=== PATIENT | male | born 1975 | race Caucasian/White ===

== ENCOUNTER 2019-03-18 16:15 | Emergency (ER) | payer MEDICAID, SELFPAY ==
[2019-03-18 17:11] LABS: Basophils # 0.1 10^3/uL (0.0-0.1); Basophils % 0.3 %; Eosinophils % 0.2 %; Hemoglobin 14.6 g/dL (11.7-16.6); Lymphocytes # 1.2 10^3/uL (0.8-4.8); Lymphocytes % 6.9 %; Mean Corpuscular HGB Conc 33.2 g/dL (30.0-36.0); Mean Corpuscular Hemoglobin 31.9 pg (28.0-34.0); Mean Corpuscular Volume 96.3 fL (80-94); Mean Platelet Volume 9.5 fL (7.4-10.4); Monocytes % 5.7 %; Neutrophils # 15.1 10^3/uL (1.8-7.7); Neutrophils % 86.2 %; Nucleated Red Blood Cells % 0 %; Platelet Count 305 10^3/cmm (130-400); Red Blood Count 4.57 10^6/uL (4.1-5.3); Red Cell Distribution Width 14.1 % (12.1-15.1); White Blood Count 17.5 10^3/uL (4.0-10.0)
[2019-03-18 17:35] LABS: Alanine Aminotransferase 17 U/L (0-41); Albumin Level 4.4 g/dL (3.5-5.2); Alkaline Phosphatase 90 IU/L (40-130); Anion Gap 22.4 (5-19); Aspartate Amino Transferase 23 U/L (0-40); Blood Urea Nitrogen 19 mg/dL (6-20); Calcium 10.8 mg/Dl (8.6-10.0); Carbon Dioxide 24 mmol/L (22-29); Chloride 92 mmol/L (98-107); Globulin 3.6 g/dL (1.3-4.6); Glomerular Filtration Rate 72.7 mL/min (90-130); Glucose 116 mg/dL (74-109); Lipase 7 U/L (13-60); Potassium 4.4 mmol/L (3.5-5.1); Sodium 134 mmol/L (136-145); Total Bilirubin 0.4 mg/dL (0.15-1.2)
[2019-03-18 18:12] VITALS: BP 189/112; PULSE 119; RESP 18; TEMP 36.6; O2SAT 97; BMI 16.5
[2019-03-18 19:09] LABS: Lactate (Lactic Acid level) 4.1 mmol/L (0.5-2.2)
--- NOTE | 2019-03-18 20:05 | PC.NURSE ---
pt placed in gown and given warm blanket. no needs at this time.
--- NOTE | 2019-03-18 20:12 | CTR_ITS ---
PROCEDURE INFORMATION: Exam: CT Abdomen And Pelvis With Contrast Exam date and time: 03/18/2019 8:26 PM Age: 43 years old Clinical indication: Nausea and vomiting; Abdominal pain; Prior surgery; Surgery type: Feeding tube placed and removed; Additional info: Abd pain TECHNIQUE: Imaging protocol: Computed tomography of the abdomen and pelvis with intravenous contrast. Total DLP: 529.24 mGy-cm Radiation optimization: All CT scans at this facility use at least one of these dose optimization techniques: automated exposure control; mA and/or kV adjustment per patient size (includes targeted exams where dose is matched to clinical indication); or iterative reconstruction. Contrast material: OMNI 300; Contrast volume: 75 ml; Contrast route: IV; COMPARISON: CT abdomen pelvis wo con [id number] 11/17/2018 4:16 AM FINDINGS: Lungs: Bibasilar subsegmental atelectasis is noted. Heart: Prominent left ventricle myocardial thickening is noted. A small pericardial effusion is noted. Liver: Normal. No mass. Gallbladder and bile ducts: Multiple gallstones are present in the gallbladder. Trace pericholecystic fluid is noted. No biliary ductal dilatation is seen. Pancreas: Normal. No ductal dilation. Spleen: Normal. No splenomegaly. Adrenals: Normal. No mass. Kidneys and ureters: A 19 mm left renal cyst is noted. The kidneys appear normal. No hydronephrosis. Stomach and bowel: A 2 cm linear metallic density object is seen in the stomach. Appendix: The appendix is normal. Intraperitoneal space: Unremarkable. No free air. No significant fluid collection. Vasculature: Mild atherosclerotic changes are seen in the abdominal aorta. No aneurysm. Lymph nodes: Unremarkable. No enlarged lymph nodes. Bladder: Unremarkable as visualized. Reproductive: Unremarkable as visualized. Bones/joints: Unremarkable. No acute fracture. Soft tissues: Unremarkable. CT/CT abdomen pelvis w con* [id number] IMPRESSION: 1. Cholelithiasis and possible cholecystitis, correlate clinically. Gallbladder ultrasound may allow further assessment. 2. Metallic density objects in the stomach are likely related to prior gastrostomy tube placement. 3. Possible hypertrophic cardiomyopathy. Radiation Dose CTDIVOL = (mGy): DLP = 529.24 (mGy-cm)
--- NOTE | 2019-03-18 20:17 | ED_ITS ---
Entered by Felicia Boucher, acting as scribe for Gricelda Leon MD Mar 18, 2019 16:15 HPI - Abdominal Pain General: Chief Complaint: Abdominal Pain Stated Complaint: abd pains, puking Time Seen by Provider: 03/18/19 20:11 Source: patient and family Mode of arrival: ambulatory History of Present Illness: HPI narrative: 43 y/o male presents to the ED with complaint of abd pain and vomiting. Family states he was seen at the clinic earlier today and was advised to come here by Dr. Lundberg, to be evaluated for possible pancreatitis. Pt has hx of malnutrition. Pt states he has hx stroke and has had to have feeding tubes. Dr. Zaldivar has placed and removed them, in the past. Pt states he has known gallstones at this time. MD elicited complaint: abdominal pain Pertinent past history: other (gallstones, pancreatitis) Onset (ago): day(s) Pain Consistency: constant Location: Epigastric Severity: moderate Migration to: no migration Relieving factors: nothing Associated Symptoms: Reports nausea, poor appetite and vomiting; Denies chills and fever(s) Review of Systems Const: Denies: fever or chills Eyes: Denies: change in vision ENMT: Denies: throat pain or mouth pain Card: Denies: chest pain Resp: Denies: shortness of breath GI: Reports: abdominal pain, nausea and vomiting Musc: Denies: back pain or joint pain Skin/Breast: Denies: rash Neuro: Denies: headache or behavioral changes Psych: Denies: depression Endo: Denies: excessive urination Terell/Lymph: Denies: easy bruising All/Imm: Denies: hives PFSH ED PFSH: Statuses (acute, chronic, etc) shown below reflect problem list status as previously entered and may not be historically accurate Medical History Stroke (cerebrum) (Acute) Social History Smoking and tobacco status: current every day smoker Physical Exam Const: COMMON NORMALS: no apparent distress, oriented x3 and healthy appearing HENMT: COMMON NORMALS: normocephalic and external nose normal HEAD & SCALP: normocephalic NOSE: external nose normal Eye: COMMON NORMALS: PERRL PUPIL: Yes PERRL Neck/C-Spine: COMMON NORMALS: full ROM and no lymphadenopathy Chest: COMMONS NORMALS: inspection of chest normal Resp: COMMON NORMALS: normal respiratory effort, no use of accessory muscles and clear to auscultation bilaterally AUSCULTATION: clear to auscultation bilaterally Cardio: COMMON NORMALS: regular rate and regular rhythm RATE: regular rate RHYTHM: regular rhythm GI: OTHER: diffuse tenderness worse in epigastric region Back/Pelvis: THORACIC SPINE/UPPER BACK: Yes normal to inspection Extremity: COMMON NORMALS: normal to inspection, full ROM and normal capillary refill Neuro: COMMON NORMALS: oriented x3 Psych: COMMON NORMALS: mental status grossly normal and cooperative Skin: COMMON NORMALS: no rashes or lesions noted GENERAL SKIN EXAM: no rashes or lesions noted Procedures Intubation Mg Given: 20 Mg Given: 200 Course Reevaluation(s): Reevaluation #1: Patient's initial lactate and white count were elevated which I believe was due to dehydration from vomiting. Patient first arrived he was afebrile and he felt much improved here after fluids and Zofran. Ultrasound and CT showed no signs of acute findings in his abdomen. After IV fluids repeat lactate had increased slightly. Patient has developed a fever now as well and I am concerned for sepsis. Will start on IV antibiotics and transfer to [facility] as we have no bed availability here. Time: 01:27 Vital Signs: Vital signs: Vital Signs Temperature 100.8 F H 03/19/19 02:30 Pulse Rate 131 H 03/19/19 02:50 Respiratory Rate 19 H 03/19/19 02:50 Blood Pressure 149/101 03/19/19 02:50 Pulse Oximetry 96 03/19/19 02:50 MDM - Abdominal Pain MDM Narrative: Medical decision making narrative: Patient presents here with vomiting along with dehydration and did have a fever here. Patient also has an elevated white count and lactate. This is concerning for sepsis. Patient has no signs of shock. Source of infection is not found with patient started on vancomycin and Zosyn. Spoke to physician at [facility] and will transfer there as we have no bed availability here. Medical Records: Attestation: I reviewed the patient's medical records. Lab Data: Labs: Lab Results 03/18/19 03/18/19 03/18/19 Range/Units 00:30 00:30 16:54 WBC 19.9 H 17.5 H (4.0-10.0) 10^3/ uL RBC 4.24 4.57 (4.1-5.3) 10^6/u L Hgb 13.1 14.6 (11.7-16.6) g/dL Hct 40.9 L 44.0 (42.0-52.0) % MCV 96.5 H 96.3 H (80-94) fL MCH 30.9 31.9 (28.0-34.0) pg MCHC 32.0 33.2 (30.0-36.0) g/dL RDW 14.1 14.1 (12.1-15.1) % Plt Count 296 305 (130-400) 10^3/c mm MPV 10.3 9.5 (7.4-10.4) fL Neut % (Auto) 85.0 86.2 % Lymph % (Auto) 8.3 6.9 % Rich % (Auto) 5.9 5.7 % Eos % (Auto) 0.2 0.2 % Baso % (Auto) 0.2 0.3 % Neut # (Auto) 16.9 H 15.1 H (1.8-7.7) 10^3/u L Lymph # (Auto) 1.7 1.2 (0.8-4.8) 10^3/u L Rich # (Auto) 1.2 H 1.0 H (0.2-0.9) 10^3/u L Eos # (Auto) 0.0 0.0 (0.0-0.8) 10^3/u L Baso # (Auto) 0.0 0.1 (0.0-0.1) 10^3/u L Nucleated RBC % (a uto) 0 0 % Nucleated RBCs # 0.0 0.0 /100WBC Specimen Type Sample Site ABG pH (7.35-7.45) ABG pCO2 (35-45) mmHg ABG pO2 (80.0-100.0) mmH g ABG HCO3 (22-26) mmol/L ABG Base Excess (-2.0-2.0) mmol/ L Jaya Test Hematocrit (42-52) % O2 Liters/Min % Ripshear Operator ID Sodium (136-145) mmol/L Potassium (3.5-5.1) mmol/L Chloride (98-107) mmol/L Carbon Dioxide (22-29) mmol/L Anion Gap (5-19) BUN (6-20) mg/dL Creatinine (0.7-1.2) mg/dL GFR Calculation (90-130) mL/min Glucose (74-109) mg/dL POC Glucose (70-110) mg/dL Lactate 4.6 H* (0.5-2.2) mmol/L Calcium (8.6-10.0) mg/Dl Total Bilirubin (0.15-1.2) mg/dL AST (0-40) U/L ALT (0-41) U/L Alkaline Phosphata se (40-130) IU/L Total Protein (6.6-8.7) g/dL Albumin (3.5-5.2) g/dL Globulin (1.3-4.6) g/dL Lipase (13-60) U/L 03/18/19 03/18/19 03/18/19 Range/Units 16:54 18:22 18:33 WBC (4.0-10.0) 10^3/ uL RBC (4.1-5.3) 10^6/u L Hgb (11.7-16.6) g/dL Hct (42.0-52.0) % MCV (80-94) fL MCH (28.0-34.0) pg MCHC (30.0-36.0) g/dL RDW (12.1-15.1) % Plt Count (130-400) 10^3/c mm MPV (7.4-10.4) fL Neut % (Auto) % Lymph % (Auto) % Rich % (Auto) % Eos % (Auto) % Baso % (Auto) % Neut # (Auto) (1.8-7.7) 10^3/u L Lymph # (Auto) (0.8-4.8) 10^3/u L Rich # (Auto) (0.2-0.9) 10^3/u L Eos # (Auto) (0.0-0.8) 10^3/u L Baso # (Auto) (0.0-0.1) 10^3/u L Nucleated RBC % (a uto) % Nucleated RBCs # /100WBC Specimen Type Sample Site ABG pH (7.35-7.45) ABG pCO2 (35-45) mmHg ABG pO2 (80.0-100.0) mmH g ABG HCO3 (22-26) mmol/L ABG Base Excess (-2.0-2.0) mmol/ L Jaya Test Hematocrit (42-52) % O2 Liters/Min % Ripshear Operator ID Sodium 134 L (136-145) mmol/L Potassium 4.4 (3.5-5.1) mmol/L Chloride 92 L (98-107) mmol/L Carbon Dioxide 24 (22-29) mmol/L Anion Gap 22.4 H (5-19) BUN 19 (6-20) mg/dL Creatinine 1.1 (0.7-1.2) mg/dL GFR Calculation 72.7 L (90-130) mL/min Glucose 116 H (74-109) mg/dL POC Glucose 99 (70-110) mg/dL Lactate 4.1 H* (0.5-2.2) mmol/L Calcium 10.8 H (8.6-10.0) mg/Dl Total Bilirubin 0.4 (0.15-1.2) mg/dL AST 23 (0-40) U/L ALT 17 (0-41) U/L Alkaline Phosphata se 90 (40-130) IU/L Total Protein 8.0 (6.6-8.7) g/dL Albumin 4.4 (3.5-5.2) g/dL Globulin 3.6 (1.3-4.6) g/dL Lipase 7 L (13-60) U/L 03/19/19 03/19/19 Range/Units 01:13 02:04 WBC (4.0-10.0) 10^3/ uL RBC (4.1-5.3) 10^6/u L Hgb (11.7-16.6) g/dL Hct (42.0-52.0) % MCV (80-94) fL MCH (28.0-34.0) pg MCHC (30.0-36.0) g/dL RDW (12.1-15.1) % Plt Count (130-400) 10^3/c mm MPV (7.4-10.4) fL Neut % (Auto) % Lymph % (Auto) % Rich % (Auto) % Eos % (Auto) % Baso % (Auto) % Neut # (Auto) (1.8-7.7) 10^3/u L Lymph # (Auto) (0.8-4.8) 10^3/u L Rich # (Auto) (0.2-0.9) 10^3/u L Eos # (Auto) (0.0-0.8) 10^3/u L Baso # (Auto) (0.0-0.1) 10^3/u L Nucleated RBC % (a uto) % Nucleated RBCs # /100WBC Specimen Type Arterial Sample Site Radial, right ABG pH 7.39 (7.35-7.45) ABG pCO2 36.6 (35-45) mmHg ABG pO2 78.3 L (80.0-100.0) mmH g ABG HCO3 22.0 (22-26) mmol/L ABG Base Excess -2.5 L (-2.0-2.0) mmol/ L Jaya Test Pos Hematocrit 40.9 L (42-52) % O2 Liters/Min 2.0 % Ripshear Operator ID harkr Sodium (136-145) mmol/L Potassium (3.5-5.1) mmol/L Chloride (98-107) mmol/L Carbon Dioxide (22-29) mmol/L Anion Gap (5-19) BUN (6-20) mg/dL Creatinine (0.7-1.2) mg/dL GFR Calculation (90-130) mL/min Glucose (74-109) mg/dL POC Glucose 83 (70-110) mg/dL Lactate (0.5-2.2) mmol/L Calcium (8.6-10.0) mg/Dl Total Bilirubin (0.15-1.2) mg/dL AST (0-40) U/L ALT (0-41) U/L Alkaline Phosphata se (40-130) IU/L Total Protein (6.6-8.7) g/dL Albumin (3.5-5.2) g/dL Globulin (1.3-4.6) g/dL Lipase (13-60) U/L Imaging Data ^: CXR: Attestation: I personally reviewed and interpreted this imaging study as f lizs: My impression: no acute abnormality EKG Data ^: EKG 1: Attestation: I personally reviewed and interpreted this EKG as follows: EKG interpretation date: 03/19/19 EKG interpretation time: 01:39 Interpretation: sinus tach hr [address] and t wave abnormality qrs 78 qtc 342 Critical Care Time Critical Care Time: Critical Care Time: Yes Total Critical Care Time: 35 Attestation: Patient given multiple fluid boluses and monitored cardiac output with initial lactate elevated and repeat lactate elevated. Patient did have a fever at first but did develop fever concerning of sepsis and started on IV ant ibiotics. Discharge Plan Discharge Patient Disposition: Xfer Other Clinical Impression: Abdominal pain in male Sepsis Qualifiers: Sepsis type: sepsis due to unspecified organism Sepsis acute organ dysfunction status: without acute organ dysfunction Qualified Code(s): A41.9 - Sepsis, unspecified organism Condition: Stable Discharge Orders: Transfer Out of Facility (Order); Ordered 03/19/19 Ordered By: Gricelda Leon Referrals: Jennifer Lundberg MD [Primary Care Provider] - Patient Instructions: Cholecystitis (ED), Abdominal Pain (ED) Coding Level of Care Code ED Spring Clipper for Chg Fwd Exam Problem Focused The documentation recorded by the Sander morel Ashley, accurately reflects the service I personally performed and the decisions made by Carolyn truong Korby, MD Mar 18, 2019 16:15
[2019-03-18 21:11] VITALS: RESP 18
[2019-03-18] MEDS: morphine 4 mg/mL SDV 1 mL IVP (21:11)
[2019-03-18] MEDS: ondansetron 2 mg/ML SDV 2 mL 4 MG IVP (21:11)
[2019-03-18] MEDS: sodium chloride 0.9% 1,000 ML 999 ML IV (21:12)
[2019-03-18 21:20] VITALS: PULSE 118; RESP 16; O2SAT 96
[2019-03-18] MEDS: iohexol 300 mg/mL 100 mL Btl 95 ML IV (21:31)
[2019-03-18 22:11] VITALS: RESP 20
[2019-03-18] MEDS: HYDROmorphone 1 mg/mL INJ 1 mL IVP (22:11)
--- NOTE | 2019-03-18 22:14 | US_ITS ---
WS: [id number] Gallbladder ultrasound, 03/18/2019 Clinical Data: abd pain Comparison: None. Findings: The gallbladder shows stones and enlargement. The wall measures 2.3 mm with no pericholecystic fluid. The common bile duct is 7.7 mm and there are no intrahepatic ductal abnormalities. Liver shows no cysts, masses or dilated intrahepatic ducts. The pancreas is not obscured by overlying bowel gas and no cyst, pseudocyst, or evidence of pancreati tis is noted. Right kidney measures 9.5 cm and no cyst, masses or hydronephrosis can be seen. The aorta and inferior vena cava show no vascular abnormalities. US/US gall bladder [id number] Impression: Cholelithiasis with enlarged gallbladder.
[2019-03-19] VITALS (12 sets, daily range): BP systolic 146–166; BP diastolic 101–112; PULSE 130–136; RESP 18–30; TEMP 38.2–38.4; O2SAT 94–97
[2019-03-19 00:19] LABS: Glucose Point of Care 99 mg/dL (70-110)
[2019-03-19 01:17] LABS: Lactate (Lactic Acid level) 4.6 mmol/L (0.5-2.2)
--- NOTE | 2019-03-19 01:22 | XR_ITS ---
WS: [id number] Portable AP upright chest, 03/19/2019 Clinical Data: cough Comparison: Portable chest, 11/17/2018. Findings: No nodules, masses or effusions are seen. The heart is slightly increased. The pulmonary va scularity is slightly increased. No pneumonia or pneumothorax is seen. Monitor leads on the chest caren enrique XR/XR chest 1V portable [id number] Impression: Normal cardiomegaly and pulmonary vascular congestion.
[2019-03-19 01:26] LABS: Glucose Point of Care 83 mg/dL (70-110)
--- NOTE | 2019-03-19 01:41 | PC.NURSE ---
performed an ekg by an professor of industrial technology and shown to ER doctor. Done at 0135
[2019-03-19 01:47] LABS: Basophils % 0.2 %; Eosinophils % 0.2 %; Hematocrit 40.9 % (42.0-52.0); Hemoglobin 13.1 g/dL (11.7-16.6); Lymphocytes # 1.7 10^3/uL (0.8-4.8); Lymphocytes % 8.3 %; Mean Corpuscular Hemoglobin 30.9 pg (28.0-34.0); Mean Corpuscular Volume 96.5 fL (80-94); Mean Platelet Volume 10.3 fL (7.4-10.4); Monocytes # 1.2 10^3/uL (0.2-0.9); Monocytes % 5.9 %; Neutrophils # 16.9 10^3/uL (1.8-7.7); Nucleated Red Blood Cells % 0 %; Platelet Count 296 10^3/cmm (130-400); Red Blood Count 4.24 10^6/uL (4.1-5.3); Red Cell Distribution Width 14.1 % (12.1-15.1); White Blood Count 19.9 10^3/uL (4.0-10.0)
[2019-03-19] MEDS: sodium chloride 0.9% 1,000 ML 999 ML IV (02:05)
[2019-03-19 02:15] LABS: ABG PCO2 36.6 mmHg (35-45); ABG PH Result 7.39 (7.35-7.45); Arterial Blood Gas Hematocrit 40.9 % (42-52); Base Excess ABG -2.5 mmol/L (-2.0-2.0); Blood Gas Allen Test Pos; Blood Gas Sample Site Radial, right; Blood Gas Sample Type Arterial; PO2 ABG 78.3 mmHg (80.0-100.0)
[2019-03-19] MEDS: LORazepam 2 mg/mL INJ 1 mL 1 MG IVP (02:29)
--- NOTE | 2019-03-19 02:41 | PC.NURSE ---
Informed nurse and doctor of temperature.
[2019-03-19] MEDS: piperacillin-tazobactam 4.5 GM in sodium chloride 0.9% (plus) 50 ML IV (02:47)
== END 2019-03-19 04:14 | disposition other institution (70) ==
PROVIDERS: Family Medicine; Physician Assistant; Emergency Provider Emergency Medicine; Family Provider Family Medicine; PCP Family Medicine
DX: A41.9 Sepsis, unspecified organism (principal); Z86.73 Personal history of transient ischemic attack (TIA), and cerebral infarction without residual deficits; F17.210 Nicotine dependence, cigarettes, uncomplicated
CPT/HCPCS: 36415; 36416; 36600; 71045; 74177; 76705; 80053; 82803; 82962; 83605; 83690; 85025; 87040; 96360; 96365; 96366; 96374; 96375; 99282; J0131; J1170; J2060; J2270; J2405; J2543; J3370; J7030; J7050; Q9967

== ENCOUNTER → 2019-04-01 14:31 | Outpatient (BNVA) | payer MEDICAID, SELFPAY | PROVIDERS: Family Provider Family Medicine; PCP Family Medicine; Visit Provider Family Medicine | DX: G89.18 Other acute postprocedural pain (principal); R10.9 Unspecified abdominal pain; J44.9 Chronic obstructive pulmonary disease, unspecified | CPT/HCPCS: 80053; 85025; 87804 ==

== ENCOUNTER → 2019-04-22 10:08 | Outpatient (BNVA) | payer MEDICAID, SELFPAY | PROVIDERS: Family Provider Family Medicine; PCP Family Medicine; Visit Provider Family Medicine | DX: R00.0 Tachycardia, unspecified (principal); K21.9 Gastro-esophageal reflux disease without esophagitis; E11.40 Type 2 diabetes mellitus with diabetic neuropathy, unspecified; E11.69 Type 2 diabetes mellitus with other specified complication; Z79.4 Long term (current) use of insulin; E87.5 Hyperkalemia; M79.604 Pain in right leg; E83.52 Hypercalcemia | CPT/HCPCS: 80053; 83036; 84443 ==

== ENCOUNTER → 2019-08-10 17:58 | Outpatient (BNVA) | payer MEDICAID, SELFPAY | PROVIDERS: Family Provider Family Medicine; PCP Family Medicine; Visit Provider Family Medicine | DX: G47.00 Insomnia, unspecified (principal); E08.43 Diabetes mellitus due to underlying condition with diabetic autonomic (poly)neuropathy; E11.69 Type 2 diabetes mellitus with other specified complication; Z79.4 Long term (current) use of insulin; M79.604 Pain in right leg | CPT/HCPCS: 80053; 80061; 83036 ==

== ENCOUNTER → 2019-10-06 12:38 | Outpatient (BNVA) | payer MEDICAID, SELFPAY | PROVIDERS: Family Provider Family Medicine; PCP Family Medicine; Visit Provider Family Medicine | DX: I10 Essential (primary) hypertension (principal); E11.69 Type 2 diabetes mellitus with other specified complication; Z79.4 Long term (current) use of insulin | CPT/HCPCS: 80053; 83036 ==

== ENCOUNTER → 2020-02-10 16:56 | Outpatient (BNVA) | payer MEDICAID, SELFPAY | PROVIDERS: Family Provider Family Medicine; PCP Family Medicine; Visit Provider Family Medicine | DX: I10 Essential (primary) hypertension (principal); G47.00 Insomnia, unspecified; I63.9 Cerebral infarction, unspecified; R00.0 Tachycardia, unspecified; E87.5 Hyperkalemia; E08.43 Diabetes mellitus due to underlying condition with diabetic autonomic (poly)neuropathy; G47.01 Insomnia due to medical condition; N18.30 Chronic kidney disease, stage 3 unspecified; Z79.4 Long term (current) use of insulin | CPT/HCPCS: 80053; 83036 ==

== ENCOUNTER → 2020-09-06 18:00 | Outpatient (BNVA) | payer MEDICAID, SELFPAY | PROVIDERS: Family Provider Family Medicine; PCP Family Medicine; Visit Provider Family Medicine | DX: E08.43 Diabetes mellitus due to underlying condition with diabetic autonomic (poly)neuropathy (principal); G47.00 Insomnia, unspecified; M79.604 Pain in right leg; R00.0 Tachycardia, unspecified; I10 Essential (primary) hypertension; G47.01 Insomnia due to medical condition; I63.89 Other cerebral infarction; E87.5 Hyperkalemia; Z79.4 Long term (current) use of insulin | CPT/HCPCS: 80053; 80061; 83036 ==

== ENCOUNTER → 2020-12-06 18:00 | Outpatient (BNVA) | payer MEDICAID, SELFPAY | PROVIDERS: Family Provider Family Medicine; PCP Family Medicine; Visit Provider Family Medicine | DX: E11.69 Type 2 diabetes mellitus with other specified complication (principal); Z79.4 Long term (current) use of insulin; R00.0 Tachycardia, unspecified; I63.89 Other cerebral infarction; E87.5 Hyperkalemia; E87.1 Hypo-osmolality and hyponatremia; I12.9 Hypertensive chronic kidney disease with stage 1 through stage 4 chronic kidney disease, or unspecified chronic kidney disease; N18.30 Chronic kidney disease, stage 3 unspecified | CPT/HCPCS: 80048; 83036; 83735 ==

== ENCOUNTER → 2020-12-12 08:17 | Outpatient (BNVA) | payer MEDICAID, SELFPAY | PROVIDERS: Family Provider Family Medicine; PCP Family Medicine; Referring Provider Family Medicine; Visit Provider Internal Medicine | DX: E11.65 Type 2 diabetes mellitus with hyperglycemia (principal); E11.43 Type 2 diabetes mellitus with diabetic autonomic (poly)neuropathy; E11.69 Type 2 diabetes mellitus with other specified complication; E16.0 Drug-induced hypoglycemia without coma; R00.0 Tachycardia, unspecified; N18.2 Chronic kidney disease, stage 2 (mild); I63.89 Other cerebral infarction; T38.3X5A Adverse effect of insulin and oral hypoglycemic [antidiabetic] drugs, initial encounter; Z79.4 Long term (current) use of insulin | CPT/HCPCS: 99205 ==

== ENCOUNTER → 2021-03-01 13:45 | Outpatient (BNVA) | payer MEDICAID, SELFPAY | PROVIDERS: Family Provider Family Medicine; PCP Family Medicine; Visit Provider Family Medicine | DX: E11.65 Type 2 diabetes mellitus with hyperglycemia (principal); N18.9 Chronic kidney disease, unspecified | CPT/HCPCS: 80048; 83036 ==

== ENCOUNTER → 2021-03-15 09:07 | Outpatient (BNVA) | payer MEDICAID, SELFPAY | PROVIDERS: Family Provider Family Medicine; PCP Family Medicine; Visit Provider Internal Medicine | DX: E11.43 Type 2 diabetes mellitus with diabetic autonomic (poly)neuropathy (principal); E11.65 Type 2 diabetes mellitus with hyperglycemia; E11.22 Type 2 diabetes mellitus with diabetic chronic kidney disease; N18.2 Chronic kidney disease, stage 2 (mild); Z86.73 Personal history of transient ischemic attack (TIA), and cerebral infarction without residual deficits; E16.0 Drug-induced hypoglycemia without coma; T38.3X5A Adverse effect of insulin and oral hypoglycemic [antidiabetic] drugs, initial encounter; F17.210 Nicotine dependence, cigarettes, uncomplicated; Z79.4 Long term (current) use of insulin | CPT/HCPCS: 99214 ==

== ENCOUNTER 2021-03-15 10:12 | Outpatient (CLI) | payer MEDICAID, SELFPAY | END 2021-03-15 10:13 | disposition home or self-care (01) | LOC: LAB 10:14 | PROVIDERS: PCP Family Medicine; Visit Provider Internal Medicine | DX: E13.9 Other specified diabetes mellitus without complications (principal) | CPT/HCPCS: 83519; 83525; 86337 ==

== ENCOUNTER → 2021-03-29 10:52 | Outpatient (BNVA) | payer MEDICAID, SELFPAY | PROVIDERS: PCP Family Medicine; Visit Provider Internal Medicine | DX: E11.22 Type 2 diabetes mellitus with diabetic chronic kidney disease (principal); E11.43 Type 2 diabetes mellitus with diabetic autonomic (poly)neuropathy; E11.65 Type 2 diabetes mellitus with hyperglycemia; N18.2 Chronic kidney disease, stage 2 (mild); I63.89 Other cerebral infarction; E16.0 Drug-induced hypoglycemia without coma; T38.3X5A Adverse effect of insulin and oral hypoglycemic [antidiabetic] drugs, initial encounter; Z86.73 Personal history of transient ischemic attack (TIA), and cerebral infarction without residual deficits; Z79.4 Long term (current) use of insulin; F17.200 Nicotine dependence, unspecified, uncomplicated | CPT/HCPCS: 99214 ==

== ENCOUNTER → 2021-03-31 09:45 | Outpatient (BNVA) | payer MEDICAID, SELFPAY | PROVIDERS: PCP Family Medicine; Visit Provider Internal Medicine | DX: E16.0 Drug-induced hypoglycemia without coma (principal); E11.65 Type 2 diabetes mellitus with hyperglycemia; E87.5 Hyperkalemia; T38.3X5A Adverse effect of insulin and oral hypoglycemic [antidiabetic] drugs, initial encounter; Z79.4 Long term (current) use of insulin | CPT/HCPCS: 82947; 84681 ==

== ENCOUNTER → 2021-06-26 11:10 | Outpatient (BNVA) | payer MEDICAID, SELFPAY | PROVIDERS: PCP Family Medicine; Visit Provider Internal Medicine | DX: E11.43 Type 2 diabetes mellitus with diabetic autonomic (poly)neuropathy (principal); E11.65 Type 2 diabetes mellitus with hyperglycemia; E11.22 Type 2 diabetes mellitus with diabetic chronic kidney disease; N18.2 Chronic kidney disease, stage 2 (mild); E78.2 Mixed hyperlipidemia; E16.0 Drug-induced hypoglycemia without coma; T38.3X5A Adverse effect of insulin and oral hypoglycemic [antidiabetic] drugs, initial encounter; F17.210 Nicotine dependence, cigarettes, uncomplicated; Z79.4 Long term (current) use of insulin; Z86.73 Personal history of transient ischemic attack (TIA), and cerebral infarction without residual deficits | CPT/HCPCS: 99214 ==

== ENCOUNTER → 2021-10-11 10:12 | Outpatient (BNVA) | payer MEDICAID, SELFPAY | PROVIDERS: PCP Family Medicine; Visit Provider Family Medicine | DX: E78.2 Mixed hyperlipidemia (principal); E11.65 Type 2 diabetes mellitus with hyperglycemia; K04.7 Periapical abscess without sinus; K29.01 Acute gastritis with bleeding; N18.9 Chronic kidney disease, unspecified; I10 Essential (primary) hypertension; E87.5 Hyperkalemia | CPT/HCPCS: 80053; 80061; 83036 ==

== ENCOUNTER → 2022-05-28 10:33 | Outpatient (BNVA) | payer MEDICAID, SELFPAY | PROVIDERS: PCP Family Medicine; Visit Provider Family Medicine | DX: E11.69 Type 2 diabetes mellitus with other specified complication (principal); I63.9 Cerebral infarction, unspecified; M79.604 Pain in right leg; R00.0 Tachycardia, unspecified; I10 Essential (primary) hypertension; K29.70 Gastritis, unspecified, without bleeding; N18.9 Chronic kidney disease, unspecified; K29.01 Acute gastritis with bleeding; G47.01 Insomnia due to medical condition; Z79.4 Long term (current) use of insulin | CPT/HCPCS: 80048; 83036; 83735 ==

== ENCOUNTER 2022-06-23 21:50 | Inpatient (IN) | payer MEDICAID, SELFPAY ==
[2022-06-23 22:46] VITALS: BMI 16.2
[2022-06-23 23:03] LABS: Glucose Point of Care 300 mg/dL (70-110)
[2022-06-23 23:40] LABS: Alanine Aminotransferase 15 U/L (0-41); Albumin Level 4.3 g/dL (3.5-5.2); Alkaline Phosphatase 183 U/L (40-130); Anion Gap 29.3 (5-19); Aspartate Amino Transferase 20 U/L (0-40); Blood Urea Nitrogen 25 mg/dL (6-20); Calcium 10.3 mg/dL (8.5-10.5); Carbon Dioxide 15 mmol/L (22-29); Chloride 90 mmol/L (98-107); Globulin 4.6 g/dL (1.3-4.6); Glomerular Filtration Rate 40.6 mL/min (90-130); Glucose 283 mg/dL (65-115); Lipase 18 U/L (13-60); Osmolality Calculated 281 mOsm/kg (285-295); Potassium 6.3 mmol/L (3.5-5.1); Sodium 128 mmol/L (136-145); Total Bilirubin 1.3 mg/dL (0.15-1.2); Total Protein 8.9 g/dL (6.6-8.7)
[2022-06-23 23:41] LABS: Basophils # 0.1 10^3/uL (0.0-0.1); Basophils % 0.4 %; Hematocrit 50.6 % (42.0-52.0); Hemoglobin 15.5 g/dL (11.7-16.6); Lymphocytes # 1.3 10^3/uL (0.8-4.8); Lymphocytes % 6.3 %; Mean Corpuscular HGB Conc 30.6 g/dL (30.0-36.0); Mean Corpuscular Volume 91.3 fl (80-94); Mean Platelet Volume 10.3 fL (7.4-10.4); Monocytes # 1.2 10^3/uL (0.2-0.9); Monocytes % 5.7 %; Neutrophils # 18.56 10^3/uL (1.8-7.7); Neutrophils % 87.2 %; Nucleated Red Blood Cells % 0 %; Platelet Count 395 10^3/cmm (130-400); Red Blood Count 5.54 10^6/uL (4.1-5.3); Red Cell Distribution Width 13.3 % (12.1-15.1); White Blood Count 21.3 10^3/uL (4.0-10.0)
[2022-06-24] VITALS (81 sets, daily range): BP systolic 141–188; BP diastolic 95–115; PULSE 102–137; RESP 14–42; TEMP 37.1–37.2; O2SAT 87–100; BMI 16.2
--- NOTE | 2022-06-24 00:02 | CTR_ITS ---
PROCEDURE INFORMATION: Exam: CT Abdomen And Pelvis Without Contrast Exam date and time: 06/24/2022 1:17 AM Age: 46 years old Clinical indication: Vomiting; Abdominal pain; Generalized; Additional info: Vomiting abd pain TECHNIQUE: Imaging protocol: Computed tomography of the abdomen and pelvis without contrast. Radiation optimization: All CT scans at this facility use at least one of these dose optimization techniques: automated exposure control; mA and/or kV adjustment per patient size (includes targeted exams where dose is matched to clinical indication); or iterative reconstruction. REPORTING DATA: Count of CT and Cardiac NM exams in prior 12 months: This patient has received 0 known CTs and 0 known cardiac nuclear medicine studies in the 12 months prior to the current study. COMPARISON: CT abdomen pelvis w con* [id number] 03/18/2019 9:44 PM RADIATION DOSE METRICS: Total DLP (mGy-cm): 325.78 FINDINGS: Lungs: The visualized lung bases are clear. Diaphragm: Small hiatal hernia. Advanced lower esophageal wall thickening. Liver: Unremarkable. No discrete mass. Gallbladder and bile ducts: Absent gallbladder. Pancreas: Unremarkable with no suspicious mass. No ductal dilation. Spleen: The spleen is not enlarged. No suspicious mass is noted. Adrenal glands: Normal. No mass. Kidneys and ureters: No solid renal mass or hydronephrosis. Stomach and bowel: Fecal filled colon. No small bowel obstruction, abscess or free air. Appendix: No evidence of appendicitis. Intraperitoneal space: Unremarkable. No free air. No suspicious fluid collection. Vasculature: No AAA or acute vascular lesion identified. Lymph nodes: No enlarged lymph nodes. Urinary bladder: Large bladder. Reproductive: Large prostate. Bones/joints: Slight upper L3 compression fracture is new from 03/18/2019. Advise correlation. Soft tissues: No acute or suspicious finding noted. Other findings: Large amount of motion. CT/CT abdomen pelvis wo con [id number] IMPRESSION: 1. Small hiatal hernia with advanced esophagitis. 2. No small bowel obstruction, abscess or free air. 3. Fecal filled colon, large prostate, large bladder, and other chronic findings. 4. Slight upper L3 compression fracture is new from 03/18/2019. Advise correlation.
[2022-06-24 01:13] LABS: Magnesium 1.7 mg/dL (1.7-2.3)
[2022-06-24 01:18] LABS: ABG PCO2 29.4 mmHg (35-45); ABG PH Result 7.42 (7.35-7.45); Arterial Blood Gas Hematocrit 46.6 % (42-52); Base Excess ABG -3.8 mmol/L (-2.0-2.0); Blood Gas Sample Site Brachial, left; Blood Gas Sample Type Arterial; HCO3 ABG 19.2 mmol/L (22-26); PO2 ABG 89.6 mmHg (80.0-100.0)
[2022-06-24 01:20] LABS: Alcohol Level < 10 mg/dL (0-10)
[2022-06-24] MEDS: sodium chloride 0.9% 1,000 ML 999 ML IV ×3 (01:30→04:59)
[2022-06-24 02:30] LABS: Ketone (Acetest) Serum Negative (Negative)
[2022-06-24 04:02] LABS: Reflex Lactate Order REFLEX LACTIC ORDERD
[2022-06-24] MEDS: morphine 4 mg/mL SDV 1 mL IVP (04:28)
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
[2022-06-24] MEDS: ondansetron 2 mg/ML SDV 2 mL 4 MG IVP (05:00)
[2022-06-24] MEDS: levofloxacin-dextrose 5 % 500 MG/100 ML PREMIX 100 MG IV (05:04)
[2022-06-24 05:07] LABS: Amphetamines Screen Urine Negative (Negative); Barbiturates Screen Urine Negative (Negative); Benzodiazepines Screen Urine Negative (Negative); Cocaine Screen Urine Negative (Negative); Opiate Screen Urine Negative (Negative); PCP Screen Urine Negative (Negative); THC Screen Urine Negative (Negative)
[2022-06-24 05:21] LABS: Add Urine Microscopic? YES; Bilirubin Urine Neg (Negative); Blood Urine Neg (Negative); Glucose Urine UA 4+ (Normal); Ketones Urine 1+ (Negative); Leukocyte Esterase Urine Negative (Negative); Nitrate Urine Negative (Negative); Protein Urine 1+ (Negative); Urine Appearance Clear (CLEAR); Urine Color Yellow (Yellow); Urobilinogen Urine Norm (Negative); pH Urine 6.5 (5-7)
[2022-06-24] MEDS: acetaminophen 500 mg Tablet 1000 MG PO (05:59)
[2022-06-24 06:21] LABS: Glucose Point of Care 285 mg/dL (70-110)
[2022-06-24 06:34] LABS: Blood Urea Nitrogen 28 mg/dL (6-20); Calcium 8.9 mg/dL (8.5-10.5); Carbon Dioxide 21 mmol/L (22-29); Chloride 91 mmol/L (98-107); Glomerular Filtration Rate 43.4 mL/min (90-130); Glucose 289 mg/dL (65-115); Osmolality Calculated 280 mOsm/kg (285-295); Sodium 127 mmol/L (136-145)
[2022-06-24 06:37] LABS: Lactate (Lactic Acid level) 6.1 mmol/L (0.5-2.2)
[2022-06-24] MEDS: calcium gluconate 0.9% NaCL 1 GM/50 ML PREMIX IV (07:40)
--- NOTE | 2022-06-24 08:24 | PC.NURSE ---
report called to STEPHANI Blanco in ICU
--- NOTE | 2022-06-24 08:58 | ECG_ITS ---
[facility] Test Date: 2022-06-24 Pat Name: Faheem Willingham Department: Room: ICU10 Gender: Male [employer]ger: : 1975 Requested By: Del Stone Order Number: [id number] Reading MD: Manuel Hong M.D. Measurements Intervals [place] Rate: 118 P: 70 SC: 158 QRS: -39 QRSD: 92 T: 108 QT: 315 QTc: 442 Interpretive Statements SINUS TACHYCARDIA LEFT AXIS DEVIATION [QRS AXIS < -30] LEFT VENTRICULAR HYPERTROPHY AND ST-T CHANGE [VOLTAGE CRITERIA PLUS ST/T ABNORMALITY] Compared to ECG 11/17/2018 00:50:59 Left-axis deviation now present Atrial abnormality no longer present ST (T wave) deviation still present Electronically Signed On 06-24-2022 11:50:31 CDT by Manuel Hong M.D. [id number]
--- NOTE | 2022-06-24 10:42 | PC.NURSE ---
Frias catheter removed due to patient request. Patient states, my heart rate and blood pressure is never this high, and my potassium is never this high, its because of all these wires.
[2022-06-24] MEDS: magnesium sulfate premix 2 GM/50 ML PIGGYBACK IV (11:11)
[2022-06-24] MEDS: pantoprazole 40 mg SDV IVP ×2 (11:11→22:35)
[2022-06-24] MEDS: sucralfate 1 gm/10 mL Oral Liq UDC PO ×3 (11:11→22:37)
[2022-06-24] MEDS: sodium chloride 0.9% 1,000 ML 125 ML IV (11:12)
--- NOTE | 2022-06-24 11:21 | USR_ITS ---
PROCEDURE INFORMATION: Exam: US Abdomen, Limited; Right Upper Quadrant Exam date and time: 06/24/2022 12:39 PM Age: 46 years old Clinical indication: Abnormal findings; Abnormal lab test; Elevated liver enzymes; Prior surgery; Surgery date: 6+ months; Surgery type: Cholecystectomy; Additional info: Hepatobiliary, cholestasis on labs with elevated t. Bili and alk phos TECHNIQUE: Imaging protocol: Real time ultrasound of the abdomen with image documentation. Limited exam focused on the right upper quadrant. COMPARISON: US gall bladder [id number] 03/18/2019 11:30 PM FINDINGS: Pleural spaces: Right pleural effusion. Liver: Unremarkable. Gallbladder: Surgically absent. Biliary ducts: Normal. No stones. Pancreas: Unremarkable as visualized. Right kidney: No mass. No definite stones. No hydronephrosis. US/US abdomen limited [id number] IMPRESSION: Right pleural effusion.
--- NOTE | 2022-06-24 11:40 | P.HP_ITS ---
Providers/Chief Complaint Admitting Physician: Aliyah Lance MD Primary Care Provider: Jennifer Lundberg MD Chief Complaint: ABD PAIN History of Present Illness 46-year-old gentleman in ER for evaluation after vomiting, upper abdominal/lower chest rising burning pain, vomiting, initially with behavioral concerns raising his voice, making threatening stances, but eventually settled down. Reported attributes his symptoms to initially eating something bad from the fridge, hot dog. Has had some diarrhea. He is extremely hard of hearing, and it seems that at least in part behavioral issues may have stemmed due to lack of hearing/understanding. His right hearing aid is not working presumably due to depleted battery and battery is low in the left. Apart from burning discomfort rising up in his chest he denies other health complaints recently. Denies fever. Denies chest pain elsewhere, no trouble breathing or cough, no abdominal pain. Has history of BPH and he is complaining of Frias catheter which was placed in ER bothering him, making him feel like he has to urinate at all times, eventually request for the Frias catheter to be removed. In ER he has quite significant sinus tachycardia up to 130s with leukocytosis of 21,000, most neutrophilic 18.56. ABG 7.42/29.4/59.6/19.2. Chemistry panel sodium 127, potassium 6.3 initially, subsequently 6, chloride 91, bicarb 21, initially 15, gap 21, initially 29.3, creatinine 1.8, glucose initially up to 300, and reports has been elevated at home. Lactic acid noted as high as 9. BUN 28, creatinine 1.7, T. bili 1.3, AST and ALT normal, alk phos 183. UA with 1+ ketones, 4+ glucose. Unremarkable urine drug screen. CT abdomen pelvis 1. Small hiatal hernia with advanced esophagitis. 2. No small bowel obstruction, abscess or free air. 3. Fecal filled colon, large prostate, large bladder, and other chronic findings. 4. Slight upper L3 compression fracture is new from 03/18/2019. Advise correlation. In ER he received fluid resuscitation with NS boluses, received Zofran, dose of Levaquin, calcium gluconate. External hard of hearing, hears well and yield into his left ear, he turned up the volume on the hearing aid, although the battery is low. Otherwise can also read. Review of Systems Const: Denies: fever(s), chills, body aches or malaise ENMT: Denies: throat pain Card: Denies: chest pain, edema, pre-syncope or dyspnea on exertion Resp: Denies: dyspnea, productive cough, change in phlegm color or hemoptysis GI: Reports: heartburn; Denies: diarrhea, constipation, hematochezia or melena : Reports: urinary frequency; Denies: flank pain or hematuria Musc: Denies: back pain, joint swelling or joint redness Skin/Breast: Denies: rash or new lesions Neuro: Denies: headache(s), numbness in extremities, weakness in extremities, dizziness, confusion or seizure-like activity All/Imm: Denies: urticaria or tongue swelling Medications/Allergies Home Medications Medication Instructions Recorded Confirmed Last Taken Type cyanocobalamin (vitamin B-12) 100 100 mcg PO .COMPLEX 03/18/19 05/28/22 Unknown History mcg tablet pen needle, diabetic 29 gauge x #100 ea 06/22/20 05/28/22 Unknown Rx 1/2 (Ultra-Thin II Insulin Pen [place]) blood sugar diagnostic (OneTouch See Rx Instructions .Route 09/30/20 05/28/22 Unknown Rx Ultra Test strips) .COMPLEX #100 ea blood-glucose meter,continuous #1 ea 07/03/21 05/28/22 Unknown Rx (Dexcom G6 Materials Management Clerk) blood-glucose transmitter (Dexcom #1 ea 07/03/21 05/28/22 Unknown Rx G6 Transmitter device) Probiotic PO 09/13/21 05/28/22 Unknown History Novolog FlexPen U-100 Insulin 100 See Rx Instructions .Route 10/11/21 05/28/22 Unknown Rx unit/mL (3 mL) subcutaneous .COMPLEX #15 mL (insulin aspart U-100) pen needle, diabetic 32 gauge x #100 ea 01/10/22 05/28/22 Unknown Rx 5/16 (Comfort EZ Pen [place]) blood-glucose sensor (Dexcom G6 #6 ea 05/09/22 05/28/22 Unknown Rx Sensor device) amitriptyline 50 mg tablet 50 mg PO .at bedtime PRN insomnia 05/28/22 05/28/22 Unknown Rx 30 days #30 tabs atorvastatin 40 mg tablet 40 mg PO .at bedtime 30 days #30 05/28/22 05/28/22 Unknown Rx tabs clopidogrel 75 mg tablet 75 mg PO DAILY 30 days #30 tabs 05/28/22 05/28/22 Unknown Rx cyclobenzaprine 10 mg tablet 10 mg PO TID PRN muscle spasm 30 05/28/22 05/28/22 Unknown Rx days #60 tabs gabapentin 300 mg capsule 300 mg PO TID 30 days #90 caps 05/28/22 05/28/22 Unknown Rx insulin glargine 100 unit/mL (3 13 unit SUBCUT DAILY 05/28/22 Unknown History mL) subcutaneous pen (Lantus Solostar U-100 Insulin) metoprolol succinate 50 mg 50 mg PO DAILY 30 days #30 tabs 05/28/22 05/28/22 Unknown Rx tablet,extended release 24 hr pantoprazole 40 mg tablet,delayed 40 mg PO DAILY 30 days #30 tabs 05/28/22 05/28/22 Unknown Rx release Allergies Allergy/AdvReac Type Severity Reaction Status Date / Time amoxicillin AdvReac Intermediate ALGY-Hives Verified 05/28/22 07:02 PFSH Acute PFSH: Medical History Acute gastric ulcer CKD (chronic kidney disease) COPD (chronic obstructive pulmonary disease) Diabetes mellitus Diabetic autonomic neuropathy associated with secondary diabetes mellitus Dysphagia GERD (gastroesophageal reflux disease) Hyperkalemia History of this Hyperlipemia Hypertension Insomnia Neuropathy, diabetic Nodule of lower lobe of left lung Seizure Stroke (cerebrum) Surgical History History of cholecystectomy Hx of tonsillectomy S/P hernia repair S/P rhinoplasty Family History Father Diabetes Dementia Mother Cancer Social History (Updated 06/24/22 @ 11:45 by Del Stone MD) Smoking and tobacco status: current every day smoker cigarettes Quit status (tobacco): not considering quitting Second hand smoke exposure: Yes Smoking risk assessment/counseling performed?: Yes Alcohol intake: never Desire information about alcohol rehabilitation?: No Counseling given: No Desire information about substance/drug rehabilitation?: No Counseling given: No Household members: other Details: sister Vitals/I&O/Wt Last Vital Signs Pulse 120 H 06/24/22 08:30 Resp 18 06/24/22 08:30 BP 164/109 06/24/22 08:51 Pulse Ox 99 06/24/22 08:30 O2 Del Method Room Air 06/24/22 08:55 06/23/22 06/24/22 06/24/22 22:59 06:59 14:59 Intake Total 2099 / 2099 1000 / 1000 Balance 2099 / 2099 1000 / 1000 Weight last 48 hrs Weight 49.895 kg Weight 49.895 kg Physical Exam Narrative: External hard of hearing, hears well and yield into his left ear, he turned up the volume on the hearing aid, although the battery is low. Otherwise can also read. Const: COMMON NORMALS: patient oriented x3 and alert GENERAL APPEARANCE: cooperative ORIENTATION/CONSCIOUSNESS: Yes awake HENMT: COMMON NORMALS: oropharynx normal Neck/C-Spine: COMMON NORMALS: no JVD Resp: COMMON NORMALS: normal respiratory effort and clear to auscultation bilaterally AUSCULTATION: clear to auscultation bilaterally Cardio: COMMON NORMALS: no JVD, regular rhythm, S1 normal heart sound present, S2 normal heart sound present and No murmurs present (Cardio) RHYTHM: regular rhythm HEART SOUNDS: S1 normal heart sound present and S2 normal heart sound present GI: COMMON NORMALS: Normal to inspection, nondistended, normoactive bowel sounds present, Soft to palpation and non-tender PALPATION: Yes Soft to palpation Extremity: COMMON NORMALS: no joint enlargement and no pedal edema Neuro: COMMON NORMALS: patient oriented x3 and moves all extremities SENSORIUM/ORIENTATION: Yes alert Skin: COMMON NORMALS: no rashes or lesions noted GENERAL SKIN EXAM: no r ashes or lesions noted Urinary Catheter Management: Frias: Cath Placed During This Visit: yes Urinary Catheter Date of Insertion: 06/24/22 Urinary Catheter Time of Insertion: 08:10 Data 06/23/22 22:25 06/24/22 06:04 A&P Assessment and plan (1) Metabolic acidosis: Metabolic acidosis, severe lactic acidosis up to 9. He is not sure that he takes metformin, does not appear to be posted on his home medications. He does take insulin. I do not see history of liver cirrhosis. Sepsis presentation back in March 2019, at that time was transferred to [facility] due to lack of beds here. We will request records. Cholelithiasis on labs, but may be secondary to some dehydration, her bilirubin 1.3, alk phos 183. Does not really have abdominal pain on palpation. We will assess with limited ultrasound, although CT was unremarkable. Gentle IV hyd ration. Possibility of DKA, urine ketones positive. Sugars have been elevated recently. Start insulin drip. NS infusion. Replace magnesium. Monitor chemistries. Follow-up magnesium, and Phos. For now empiric antibiotics with ciprofloxacin and Flagyl (2) SIRS (systemic inflammatory response syndrome): SIRS with leukocytosis 21.3, tachycardia to 130s, currently 120s. Difficult to exclude sepsis and septic shock Esophagitis on CT. Otherwise some cholestasis noted as above. Blood culture requested, although I am told currently there is no blood culture vials. Discussing with lab, AO, 1 set was found here, another set will be a send out to [facility]. I am updated that the send out vials will not be available until tomorrow. Cipro and Flagyl empirically for now. PPI. Otherwise also enlarged prostate, he is having good amount of discomfort especially with Frias which had to be removed. Possibility of prostatitis, although urine otherwise not suggestive of UTI. Antibiotics as above. Will need follow-up with urology. Additionally as above similar presentation back in March 2019, also severe lactic acidosis up to 10, medical records have been requested from [facility]. Otherwise per outpatient notes has been having dental pain/abscess reported rece ntly for which she received antibiotics. Currently is not bothered by his teeth, although says they are not in good condition. A number of teeth are either missing, broken, tooth decay. No erythema or tenderness anywhere in the gums currently. No maxillary, mandibular or submandibular tenderness. With recent dental infections unfortunately concern for possibility of bacteremia at this time, possible other occult infection site. CT abdomen pelvis noncontrast study without obvious other focus, although again noncontrast. Noted new L3 compression fracture. Assess chest x-ray. (3) Acute kidney injury superimposed on CKD: Received fluid challenge. Follow-up kidney function, electrolytes, chemistry requested. No obstruction noted on CT. Suspect prerenal with severe acidosis, possibly ketoacidosis, degree of dehydration presentation, now possibly ATN. Monitor urine output. (4) Cholestasis: Hepatobiliary ultrasound. Gentle hydration. Empiric antibiotics for now. Suspect is more likely secondary to dehydration, although he is not fed cholelithiasis in the past but has since had cholecystectomy. Lipase is not elevated. (5) Esophagitis: PPI, sucralfate. As he is presenting with sepsis for now also empiric antibiotics as above. (6) Hyponatremia: Suspect hypovolemic, he has received fluid challenge. Follow-up sodium level. 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 Bicarb is low at 15. Dehydrated. Received volume resuscitation with improvement in numbers. Insulin drip with glucose monitoring in ICU. Follow-up chemistries. Electrolytes. (8) Prostate enlargement: BPH, possibly of prostatitis not excluded given symptoms, although UA really not suggestive of UTI. He requested removal of Frias as it was bothering him quite a bit. Monitor urine output. For now empiric antibiotics as above, although suspicion for infection is lower but cannot entirely exclude prostatitis, although also with think less likely should cause him sepsis presentation. Follow-up with urology. Flomax. Plan Acute encephalopathy: There appears to be may be mild degree of acute encephalopathy with mild delirium, possibly what was going on on admission, some of it at least in part likely secondary to severe hearing impairment. Batteries are being obtained for his hearing aids. However, he is still acting restless, minimally agitated, although has been somewhat redirectable, but still even with removal of Frias, getting up, pacing in the room. Concern expressed by the nurse that he is becoming more restless. Requesting 2 mg IM Haldol x1. Precedex. Difficulty with IV access: Very difficult time obtaining IV access, 1 of diabetes 20-gauge at risk of infiltrating. AC obtained, but unclear how long therefore will stay. PICC line requested to allow for blood draws as well. CKD, currently with DARWIN Gastric ulcer history: PPI COPD: Currently not in exacerbation GERD: PPI HLD HTN Diabetic neuropathy History of seizure History of stroke Nodule of right lower lung history Requested home medications to be confirmed, possibly with his sister so they can be reconciled and resumed. Attestations Medical Necessity Statement*: Admission of over 2 midnights anticipated for assessment management of severe metabolic acidosis, SIRS with possible sepsis, severe lactic acidosis, DKA, acute encephalopathy, additional problems as above. Coding Level of Care Code Critical Care >/= 30 minutes Critical care time (in minutes): 40 The high probability of a clinically significant, sudden or life threatening deterioration, as referenced in this documentation, required my full and direct attention, intervention and personal management. The critical care time shown is in addition to time spent performing any reported separately billable procedures and includes the following: [x] Data and vital sign review and interpretation [x ] Patient assessment, examination and intervention [x] Medication orders and management [x] Patient/Family updates as able [x] Care Coordination and Documentation. Diagnoses Metabolic acidosis E87.20 SIRS (systemic inflammatory response syndrome) R65.10 Acute kidney injury superimposed on CKD N17.9; N18.9 Cholestasis K83.1 Esophagitis K20.90 Hyponatremia E87.1 Ketonuria R82.4 Prostate enlargement N40.0
[2022-06-24] MEDS: insulin regular-human 250 UNIT in sodium chloride 0.9% 250 ML 5.39 UNIT IV (12:11)
[2022-06-24 12:24] LABS: Glucose Point of Care 238 mg/dL (70-110)
[2022-06-24 12:39] LABS: Thyroid Stimulating Hormone 1.53 uIU/mL (0.27-4.20)
[2022-06-24] MEDS: haloperidol inj 5 mg/mL INJ 1 mL 2 MG IM (12:49)
[2022-06-24] MEDS: nicotine 21 mg Patch 1 PATCH TRANSDERMA (12:52)
[2022-06-24] MEDS: enoxaparin 40 mg/0.4 mL Syringe SUBCUT (12:53)
--- NOTE | 2022-06-24 12:59 | PC.NURSE ---
Multiple IV attempts my several staff, Ultrasound IV attempted by 2 RN. Not successful. 20G IV places by STEPHANI Sandoval, infiltrated with maintenance fluid. Patient refuses cardiac monitoring. Patient agitated, verbalizes anger at staff for lab draws. Patient repeatedly states, you all are making me worse! you say you are trying to help me, but these wires and these Iv's are making me worse! I was not this sick before I came here! Male Family at bedside left patients room angry, stating, I have to leave this is ridiculous! Patient and sister at bedside extensively educated on patients condition and needed interventions, neither had questions at that time and verbalized understanding. Dr. Bright notified of patient and family agitation. Sister did bring hearing aid batteries and patient is able to communicate with staff better. Patient agrees to PICC line placement and signed consent with sister at bedside.
--- NOTE | 2022-06-24 13:02 | ECG_ITS ---
[facility] Test Date: 2022-06-24 Pat Name: Faheem Willingham Department: Room: ICU10 Gender: Male Rebar Bender: : 1975 Requested By: Del Stone Order Number: [id number] Reading MD: Manuel Hong M.D. Measurements Intervals [place] Rate: 120 P: 64 WI: 148 QRS: -20 QRSD: 90 T: 115 QT: 291 QTc: 411 Interpretive Statements SINUS TACHYCARDIA LEFT VENTRICULAR HYPERTROPHY AND ST-T CHANGE [VOLTAGE CRITERIA PLUS ST/T ABNORMALITY] POSSIBLE ANTERIOR MYOCARDIAL INFARCTION , OF INDETERMINATE AGE [30 ms Q WAVE IN V3/V4, OR R < 0.2 mV IN V4] Compared to ECG 06/24/2022 08:58:56 Myocardial infarct finding now present Left-axis deviation no longer present ST (T wave) deviation still present Electronically Signed On 06-24-2022 21:28:14 CDT by Manuel Hong M.D. [id number]
[2022-06-24 13:23] LABS: Glucose Point of Care 129 mg/dL (70-110)
[2022-06-24 13:54] LABS: D Dimer 3.19 ug/mIFEU (0-0.59)
[2022-06-24 14:23] LABS: Glucose Point of Care 105 mg/dL (70-110)
--- NOTE | 2022-06-24 14:56 | XRR_ITS ---
PROCEDURE INFORMATION: Exam: XR Chest Exam date and time: 06/24/2022 2:04 PM Age: 46 years old Clinical indication: Device placement; Picc; Additional info: Picc placement TECHNIQUE: Imaging protocol: Radiologic exam of the chest. Views: 1 view. COMPARISON: CR XR chest 1V portable [id number] 03/19/2019 1:41 AM FINDINGS: Tubes, catheters and devices: Right-sided PICC line in place with its tip overlying the cavoatrial junction. Lungs: Unremarkable. No consolidation. Pleural spaces: Unremarkable. No pleural effusion. No clinically significant pneumothorax. Heart/Mediastinum: Unremarkable. No cardiomegaly. Bones/joints: Unremarkable. XR/XR chest 1V portable [id number] IMPRESSION: Right-sided PICC line in place with its tip overlying the cavoatrial junction. No clinically significant pneumothorax.
--- NOTE | 2022-06-24 15:30 | PC.NURSE ---
Clarified verbal order from Dr. Bright to stop sodium chloride 0.9% and start dextrose 5%- sod chloride 0.45% at 125mls/hr.
[2022-06-24] MEDS: dextrose 5%-sod chloride 0.45% 1,000 ML 125 ML IV (15:32)
[2022-06-24] MEDS: metroNIDAZOLE IV 500 MG/100 ML PREMIX 100 MG IV ×2 (15:37→19:55)
[2022-06-24 15:42] LABS: Glucose Point of Care 90 mg/dL (70-110)
--- NOTE | 2022-06-24 15:49 | PC.NURSE ---
Consulted by house charge for picc placement. Consent obtained prior to arrival. I did discuss risk an benefits discussed. Risk included dvt an infection. RUE scanned with US an brachial vein was the best option. Vein was straight, 4mm, an free of visible clot. Pt draped in usual sterile fashion. Using real time US lidocaine injected, vein accessed, an picc floated into position. Xray ordered an waiting confirmation. EBL less then 5 ml. No bleeding no hematoma. Pt arm circumference is 29 cm at 10 cm above the ac fossa.
[2022-06-24 16:05] LABS: Troponin 5 2HR 53.16 ng/L (0-15)
[2022-06-24 16:20] LABS: Troponin(5th) Baseline 56 ng/L (0-15)
[2022-06-24] MEDS: dexmedetomidine 400 MCG in sodium chloride 0.9% (100 ml) 100 ML IV (16:20)
[2022-06-24 16:25] LABS: Troponin 5 2HR Delta -2.84 ABS# (0-10)
[2022-06-24 16:32] LABS: Glucose Point of Care 158 mg/dL (70-110)
--- NOTE | 2022-06-24 16:35 | ECG_ITS ---
[facility] Test Date: 2022-06-24 Pat Name: Faheem Willingham Department: Room: ICU10 Gender: Male Principal Process Engineer: JUSTEN: 1975 Requested By: Del Stone Order Number: [id number] Reading MD: Manuel Hong M.D. Measurements Intervals [place] Rate: 124 P: 54 NC: 140 QRS: -42 QRSD: 98 T: 116 QT: 285 QTc: 410 Interpretive Statements SINUS TACHYCARDIA LEFT AXIS DEVIATION [QRS AXIS < -30] LEFT VENTRICULAR HYPERTROPHY AND ST-T CHANGE [VOLTAGE CRITERIA PLUS ST/T ABNORMALITY] Compared to ECG 06/24/2022 13:37:49 Left-axis deviation now present Myocardial infarct finding no longer present ST (T wave) deviation still present Electronically Signed On 06-24-2022 21:27:38 CDT by Manuel Hong M.D. [id number]
--- NOTE | 2022-06-24 17:11 | PC.NURSE ---
Patient expresses frustration about obtaining EKG, nurses requests to remain in bed and IV drip lines. Patient states, I've never had heart problems before this, before all these wires and all these tubes attached to me. Patient denies pain at this time. Heart rate is 124, BP 148/89 and patient is resting in bed.
--- NOTE | 2022-06-24 17:33 | CTR_ITS ---
PROCEDURE INFORMATION: Exam: CT Head Without Contrast Exam date and time: 06/24/2022 6:05 PM Age: 46 years old Clinical indication: Other: Sepsis with dental complaints; Additional info: Sepsis, mild encephalopathy, dental complaints in preceding months TECHNIQUE: Imaging protocol: Computed tomography of the head without contrast. Axial, coronal and sagittal reformatted images were created and reviewed. Radiation optimization: All CT scans at this facility use at least one of these dose optimization techniques: automated exposure control; mA and/or kV adjustment per patient size (includes targeted exams where dose is matched to clinical indication); or iterative reconstruction. REPORTING DATA: Count of CT and Cardiac NM exams in prior 12 months: This patient has received 2 known CTs and 0 known cardiac nuclear medicine studies in the 12 months prior to the current study. COMPARISON: CT head wo con* [id number] 11/17/2018 2:43 PM RADIATION DOSE METRICS: Total DLP (mGy-cm): 1100.88 FINDINGS: Brain: Right greater than left temporoparietal encephalomalacia. Patchy areas of hypoattenuation in the periventricular and subcortical white matter, consistent with chronic small vessel ischemic disease. No CT evidence of acute intracranial hemorrhage or acute territorial infarction. No significant mass effect or midline shift. Basal cisterns patent. Cerebral ventricles: Prominence of the cortical sulci, cisterns and ventricular system, consistent with cerebral and cerebellar volume loss. Paranasal sinuses: Mild ethmoid mucosal thickening. Polypoid right frontal and left maxillary sinus mucosal thickening. No fluid levels. Mastoid air cells: Grossly unremarkable. Bones/joints: No acute osseous abnormality. Soft tissues: Grossly unremarkable. Vasculature: Calcific atherosclerotic disease in the cavernous internal carotid arteries, as well as the vertebro-basilar system. CT/CT head wo con* [id number] IMPRESS[address]: 1. No CT evidence of acute intracranial pathology. 2. Additional findings, as above.
--- NOTE | 2022-06-24 17:36 | CTR_ITS ---
PROCEDURE INFORMATION: Exam: CTA Chest With Contrast Exam date and time: 06/24/2022 6:08 PM Age: 46 years old Clinical indication: Pain; Other: Elevated d-dimer; Chest pressure; Additional info: Assess for pe TECHNIQUE: Imaging protocol: Computed tomographic angiography of the chest with contrast. 3D rendering (Not supervised by radiologist): MIP and/or 3D reconstructed images were created by the technologist. Radiation optimization: All CT scans at this facility use at least one of these dose optimization techniques: automated exposure control; mA and/or kV adjustment per patient size (includes targeted exams where dose is matched to clinical indication); or iterative reconstruction. Contrast material: OMNI 350; Contrast volume: 70 ml; Contrast route: INTRAVENOUS (IV); REPORTING DATA: Count of CT and Cardiac NM exams in prior 12 months: This patient has received 2 known CTs and 0 known cardiac nuclear medicine studies in the 12 months prior to the current study. COMPARISON: CR (CHEST, ) 06/24/2022 2:04 PM RADIATION DOSE METRICS: Total DLP (mGy-cm): 250.1 FINDINGS: Pulmonary arteries: Normal. No pulmonary emboli. Aorta: Unremarkable. No aortic aneurysm. No aortic dissection. Lungs: Emphysematous changes. Bilateral dependent atelectasis versus infiltrate. Pleural spaces: Small right pleural effusion. Heart: Coronary artery atherosclerotic calcifications. Mediastinal space: Diffuse esophageal wall thickening suggestive of esophagitis a or possibly an underlying mass. Lymph nodes: Unremarkable. No enlarged lymph nodes. Gallbladder and bile ducts: Cholecystectomy. Bones/joints: Several chronic thoracic spine compression fractures. Soft tissues: Unremarkable. Right-sided PICC line. Right adrenal 23 mm indeterminate nodule, dedicated nonemergent adrenal imaging could further characterize this. CT/CT angio chest PE protcl [id number] IMPRESSION: 1. Negative for pulmonary embolus. 2. Small right pleural effusion. 3. Diffuse esophageal wall thickening suggestive of esophagitis a or possibly an underlying mass. 4. Cholecystectomy. 5. Emphysematous changes. 6. Bilateral dependent atelectasis versus infiltrate. 7. Several chronic thoracic spine compression fractures. 8. Coronary artery atherosclerotic calcifications. 9. Right-sided PICC line. 10. Right adrenal 23 mm indeterminate nodule, dedicated nonemergent adrenal imaging could further characterize this.
[2022-06-24 17:47] LABS: Glucose Point of Care 193 mg/dL (70-110)
[2022-06-24] MEDS: iohexol 350 mg/mL 500 mL Btl (per mL) IV (18:08)
[2022-06-24] MEDS: acetaminophen 325 mg Tablet 650 MG PO (19:02)
[2022-06-24 19:06] LABS: Glucose Point of Care 163 mg/dL (70-110)
[2022-06-24 19:39] LABS: Troponin 5 6HR 57.91 ng/L (0-15)
[2022-06-24 19:40] LABS: Troponin 5 6HR Delta 1.91 ng/L (0-12)
--- NOTE | 2022-06-24 19:54 | USR_ITS ---
PROCEDURE INFORMATION: Exam: US Duplex Lower Extremity Veins, Bilateral Exam date and time: 06/24/2022 8:25 PM Age: 46 years old Clinical indication: Abnormal findings; Abnormal lab test; Elevated d-dimer; Additional info: Assess for dvt TECHNIQUE: Imaging protocol: Real-time duplex ultrasound of the bilateral extremities with 2-D turpin scale, color Doppler flow and spectral waveform analysis including responses to compression and other maneuvers (when performed) with image documentation. Complete exam focused on the lower extremity veins. COMPARISON: CT abdomen pelvis wo con [id number] 06/24/2022 1:17 AM FINDINGS: Right deep veins: Unremarkable. The common femoral, femoral, proximal profunda femoral and popliteal veins are patent without thrombus. Normal Doppler waveforms. Normal compressibility and/or augmentation response. Right superficial veins: Saphenofemoral junction is patent without thrombus. Left deep veins: Unremarkable. The common femoral, femoral, proximal profunda femoral and popliteal veins are patent without thrombus. Normal Doppler waveforms. Normal compressibility and/or augmentation response. Left superficial veins: Saphenofemoral junction is patent without thrombus. Soft tissues: Unremarkable. US/[place] [id number] IMPRESSION: No evidence of deep vein thrombosis.
[2022-06-24 20:06] LABS: Glucose Point of Care 157 mg/dL (70-110)
[2022-06-24 20:49] LABS: Blood Urea Nitrogen 19 mg/dL (6-20); Calcium 7.1 mg/dL (8.5-10.5); Carbon Dioxide 13 mmol/L (22-29); Chloride 95 mmol/L (98-107); Glomerular Filtration Rate 71.8 mL/min (90-130); Glucose 481 mg/dL (65-115); Magnesium 1.7 mg/dL (1.7-2.3); Osmolality Calculated 274 mOsm/kg (285-295); Phosphorus 1.8 mg/dL (2.5-4.5); Sodium 120 mmol/L (136-145)
[2022-06-24 21:02] LABS: Anion Gap 16.7 (5-19); Potassium 4.7 mmol/L (3.5-5.1)
[2022-06-24 21:26] LABS: Glucose Point of Care 87 mg/dL (70-110)
[2022-06-24 21:57] LABS: Glucose Point of Care 83 mg/dL (70-110)
[2022-06-24] MEDS: HYDROmorphone 1 mg/mL INJ 1 mL 0.4 MG IVP (22:37)
[2022-06-24 23:22] LABS: Blood Urea Nitrogen 19 mg/dL (6-20); Calcium 8.1 mg/dL (8.5-10.5); Carbon Dioxide 18 mmol/L (22-29); Chloride 98 mmol/L (98-107); Glomerular Filtration Rate 59.2 mL/min (90-130); Glucose 108 mg/dL (65-115); Osmolality Calculated 267 mOsm/kg (285-295); Sodium 127 mmol/L (136-145)
[2022-06-24 23:32] LABS: Glucose Point of Care 120 mg/dL (70-110)
[2022-06-24 23:51] LABS: Anion Gap 16.8 (5-19); Potassium 5.8 mmol/L (3.5-5.1)
[2022-06-25] VITALS (143 sets, daily range): BP systolic 111–152; BP diastolic 70–104; PULSE 81–113; RESP 9–28; TEMP 36.1–37.1; O2SAT 70–99; BMI 15.7
[2022-06-25] MEDS: sodium chloride 0.45% 1,000 ML 125 ML IV ×3 (00:33→17:50)
[2022-06-25] MEDS: insulin glargine 100 units/1 mL 10 UNIT SUBCUT ×2 (00:33→21:13)
[2022-06-25 04:14] LABS: Basophils # 0.1 10^3/uL (0.0-0.1); Basophils % 0.3 %; Eosinophils % 0.2 %; Hematocrit 37.9 % (42.0-52.0); Hemoglobin 11.7 g/dL (11.7-16.6); Lymphocytes # 1.2 10^3/uL (0.8-4.8); Lymphocytes % 6.2 %; Mean Corpuscular HGB Conc 30.9 g/dL (30.0-36.0); Mean Corpuscular Hemoglobin 27.8 pg (28.0-34.0); Monocytes # 1.9 10^3/uL (0.2-0.9); Monocytes % 9.5 %; Neutrophils # 16.33 10^3/uL (1.8-7.7); Neutrophils % 83.4 %; Nucleated Red Blood Cells % 0 %; Platelet Count 281 10^3/cmm (130-400); Red Blood Count 4.21 10^6/uL (4.1-5.3); Red Cell Distribution Width 13.4 % (12.1-15.1); White Blood Count 19.6 10^3/uL (4.0-10.0)
[2022-06-25 04:28] LABS: Alanine Aminotransferase 11 U/L (0-41); Albumin Level 3.4 g/dL (3.5-5.2); Alkaline Phosphatase 131 U/L (40-130); Anion Gap 15.3 (5-19); Aspartate Amino Transferase 32 U/L (0-40); Blood Urea Nitrogen 17 mg/dL (6-20); Carbon Dioxide 19 mmol/L (22-29); Chloride 98 mmol/L (98-107); Globulin 3.1 g/dL (1.3-4.6); Glomerular Filtration Rate 59.2 mL/min (90-130); Glucose 126 mg/dL (65-115); Magnesium 1.7 mg/dL (1.7-2.3); Osmolality Calculated 267 mOsm/kg (285-295); Phosphorus 2.2 mg/dL (2.5-4.5); Potassium 5.3 mmol/L (3.5-5.1); Sodium 127 mmol/L (136-145); Total Protein 6.5 g/dL (6.6-8.7)
[2022-06-25] MEDS: metroNIDAZOLE IV 500 MG/100 ML PREMIX 100 MG IV ×3 (04:38→20:49)
[2022-06-25] MEDS: lidocaine 2% viscous 15 ML, aluminum-mag hydrox-simethicon 30 ML, sucralfate oral liq 1 GM PO (05:09)
[2022-06-25] MEDS: HYDROmorphone 1 mg/mL INJ 1 mL 0.4 MG IVP ×3 (05:34→20:44)
[2022-06-25] MEDS: ciprofloxacin 400 MG/200 ML PREMIX 200 MG IV ×2 (05:35→17:47)
[2022-06-25 06:08] LABS: Troponin T (5th) Once 85 ng/L (0-15)
[2022-06-25] MEDS: acetaminophen 325 mg Tablet 650 MG PO ×4 (06:20→20:46)
[2022-06-25 07:20] LABS: Glucose Point of Care 120 mg/dL (70-110)
[2022-06-25 07:20] LABS: Glucose Point of Care 217 mg/dL (70-110)
[2022-06-25] MEDS: nicotine 21 mg Patch 1 PATCH TRANSDERMA (07:46)
[2022-06-25] MEDS: insulin lispro 100 unit/1 mL SUBCUT ×2 (07:46→21:13)
[2022-06-25] MEDS: magnesium sulfate premix 2 GM/50 ML PIGGYBACK IV (09:00)
[2022-06-25 11:01] LABS: Glucose Point of Care 120 mg/dL (70-110)
[2022-06-25] MEDS: pantoprazole 40 mg SDV IVP ×2 (12:25→23:13)
[2022-06-25] MEDS: enoxaparin 40 mg/0.4 mL Syringe SUBCUT (12:26)
[2022-06-25] MEDS: sucralfate 1 gm/10 mL Oral Liq UDC PO ×3 (12:26→23:13)
--- NOTE | 2022-06-25 14:19 | CTR_ITS ---
PROCEDURE INFORMATION: Exam: CT Maxillofacial With Contrast; Mandible Exam date and time: 06/25/2022 5:23 PM Age: 46 years old Clinical indication: Other: Tooth pain; Additional info: Attn mandible, sepsis. Poor dentition. Today toothache at L cuspid. TECHNIQUE: Imaging protocol: Computed tomography maxillofacial with intravenous contrast. Exam focused on the mandible. Radiation optimization: All CT scans at this facility use at least one of these dose optimization techniques: automated exposure control; mA and/or kV adjustment per patient size (includes targeted exams where dose is matched to clinical indication); or iterative reconstruction. Contrast material: OMNI 350; Contrast volume: 100 ml; Contrast route: INTRAVENOUS (IV); REPORTING DATA: Count of CT and Cardiac NM exams in prior 12 months: This patient has received 3 known CTs and 0 known cardiac nuclear medicine studies in the 12 months prior to the current study. COMPARISON: CT head wo con* [id number] 06/24/2022 6:05 PM RADIATION DOSE METRICS: Total DLP (mGy-cm): 655.72 FINDINGS: Bones/joints: No fracture or suspicious bony lesions. Mild rightward nasal septal deviation. Paranasal sinuses: Tiny mucous retention cyst anterior left maxillary sinus measuring 9 mm. Otherwise no mucosal thickening or sinus air-fluid levels. Soft tissues: See Dental finding. Brain: Partially visualized brain demonstrates mild atrophy and hypodense changes in the bilateral temporoparietal regions similar to prior exam consistent with encephalomalacia. Dental: Multiple maxillary and mandibular dental carious lesions bilaterally with multifocal periapical lucencies bilaterally, left worse than right. The periapical lucencies appear most prominent in the left upper incisor/canine region. No obvious periosteal/soft tissue abscess or soft tissue gas. No discrete soft tissue mass. CT/CT facial bones w con [id number] IMPRESSION: 1. Multifocal bilateral maxillary/mandibular dental carious lesions and periapical lucencies, left worse than right as described above. No obvious periosteal/soft tissue abscess, soft tissue gas or deep space infection. Follow-up with dentistry/maxillofacial clinical service should be obtained. 2. Other nonacute findings as described.
[2022-06-25 18:04] LABS: Glucose Point of Care 198 mg/dL (70-110)
--- NOTE | 2022-06-25 19:03 | USCV_ITS ---
Faheem Willingham Age: 46 Gender: M : 1975 Exam Date: 06/25/2022 22:35 Ordering Phys: Del Stone MD Technologist: GABRIELA [place] [facility] [place]: admit for diarrhea, abdominal pain, N+V, no history of cardiac intervention per patient. BP: 120 / 70 HR: 99 Rhythm: Sinus Technical Quality: Good MEASUREMENTS (Male / Female) Normal Values 2D ECHO LV Diastolic Diameter PLAX 3.6 cm 4.2 - 5.9 / 3.9 - 5.3 cm LV Systolic Diameter PLAX 2.4 cm IVS Diastolic Thickness 2.1 cm 0.6 - 1.0 / 0.6 - 0.9 cm IVS Systolic Thickness 2.5 cm LVPW Diastolic Thickness 2.0 cm 0.6 - 1.0 / 0.6 - 0.9 cm LVPW Systolic Thickness 2.6 cm LVOT Diameter 2.1 cm LV Ejection Fraction 2D Teich 62.5 % LV Ejection Fraction MOD 2C 65.5 % LV Ejection Fraction 2C AL 67.6 % LA Diameter 2.4 cm LA Width 2.4 cm LA Height 3.3 cm RA Width 2.6 cm RA Height 4.1 cm Aorta at Sinotubular Diameter 3.1 cm IVC Diameter 1.2 cm M-MODE Aortic Annulus Diameter 3.1 cm LA Ao Ratio MM 0.8 MV E Point Septal Separation 0.3 cm DOPPLER AV Peak Velocity 108.0 cm/s LVOT Peak Velocity 115.0 cm/s AV Area Cont Eq vti 2.9 cm squared AV Area Cont Eq pk 3.5 cm squared MV Peak Velocity 192.0 cm/s MV Area PHT 5.0 cm squared Mitral E to A Ratio 0.9 MV E' Velocity 45.0 cm/s Mitral E to MV E' Ratio 23.4 Mitral E to LV E' Lateral Ratio 28.9 Mitral E to LV E' Septal Ratio 19.7 TV Peak E Velocity 39.0 cm/s PV Peak Velocity 149.0 cm/s RV Acceleration Time 0.2 s RV Ejection Time 0.3 s RV AcT/ET 0.5 FINDINGS Left Ventricle Left ventricle is normal in size. LV systolic function is normal with EF 60-65%. No regional wall motion abnormalities are seen. Severe concentric left ventricular hypertrophy is seen. Grade 1 diastolic dysfunction Right Ventricle Normal in size and function Right Atrium Normal in size Left Atrium Normal in size Mitral Valve Structurally normal mitral valve. Trace mitral regurgitation. Aortic Valve Structurally normal aortic valve. No significant stenosis or regurgitation. Tricuspid Valve Trace tricuspid regurgitation. Insufficient TR jet to calculate RVSP Pulmonic Valve Not well visualized. Mild pulmonic regurgitation. Pericardium Trace pericardial effusion Aorta Normal in size IVC Appears to be normal CONCLUSIONS LV systolic function is normal with EF 60 to 65%. Severe concentric left ventricular hypertrophy is seen. Grade 1 diastolic dysfunction Trace mitral regurgitation Trace tricuspid regurgitation Mild pulmonic regurgitation Trace pericardial effusion No comparison studies are available Manuel Hong MD (Electronically Signed) Final Date: 26 June 2022 14:33 S
--- NOTE | 2022-06-25 19:04 | PM.PN ---
Subjective Subjective: Today he is complaining of a toothache in the left lower cuspid. Overnight reported episode of chest pain which seemed to resolve with a GI cocktail. Vitals/I&O/Wt Last Vital Signs Temp 98.5 F 06/25/22 15:55 Pulse 82 06/25/22 16:05 Resp 14 06/25/22 16:05 BP 120/70 06/25/22 16:05 Pulse Ox 96 06/25/22 16:05 O2 Del Method Room Air 06/24/22 15:55 06/25/22 06/25/22 06/25/22 06:59 14:59 22:59 Intake Total 1400 / 3306.676 1256.25 / 1256.25 1405.553 / 2661.803 Output Total 750 / 1575 1150 / 1150 Balance 650 / 8284.547 7008.25 / 1256.25 255.553 / 1511.803 Weight last 48 hrs Weight 49.895 kg Weight 49.895 kg Weight 49.895 kg Physical Exam Narrative: Still very hard of hearing but slightly better since replacement of batteries in his hearing aids. Const: COMMON NORMALS: patient oriented x3 and alert GENERAL APPEARANCE: cooperative ORIENTATION/CONSCIOUSNESS: Yes awake HENMT: COMMON NORMALS: oropharynx normal OTHER: Reports pain in left lower cuspid, I do not appreciate significant redness or swelling around the tooth. Very poor dentition with multiple missing, degraded, broken teeth. Neck/C-Spine: COMMON NORMALS: no JVD Resp: COMMON NORMALS: normal respiratory effort and clear to auscultation bilaterally AUSCULTATION: clear to auscultation bilaterally Cardio: COMMON NORMALS: no JVD, regular rhythm, S1 normal heart sound present, S2 normal heart sound present and No murmurs present (Cardio) RHYTHM: regular rhythm HEART SOUNDS: S1 normal heart sound present and S2 normal heart sound present GI: COMMON NORMALS: Normal to inspection, nondistended, normoactive bowel sounds present, Soft to palpation and non-tender PALPATION: Yes Soft to palpation Extremity: COMMON NORMALS: no joint enlargement and no pedal edema Neuro: COMMON NORMALS: patient oriented x3 and moves all extremities SENSORIUM/ORIENTATION: Yes alert Skin: COMMON NORMALS: no rashes or lesions noted GENERAL SKIN EXAM: no rashes or lesions noted Urinary Catheter Management: Frias: Cath Placed During This Visit: yes Urinary Catheter Date of Insertion: 06/24/22 Urinary Catheter Time of Insertion: 08:10 Data 06/25/22 03:39 06/25/22 03:39 Micro: Microbiology 06/24/22 13:13 Blood Culture - Preliminary Blood NEGATIVE TO DATE A&P Assessment and plan (1) Metabolic acidosis: Improved, anion gap, bicarb noted with improvement. Transition to subcutaneous insulin. Renal function noted about the same, creatinine 1.3, BUN slightly better at 17. Hypomagnesemia replaced. Anticipate lactic acid has improved. Recheck in the morning. Sodium 127, potassium better at 5.3. Cut down IVF. Possibility of DKA, urine ketones positive. Improved. Sugars have been elevated recently. For now empiric antibiotics with ciprofloxacin and Flagyl (2) SIRS (systemic inflammatory response syndrome): No growth on blood cultures so far. No further diarrhea, stool studies uncollected. Suspected occult infection, source not entirely clear. Blood cultures on review still negative. Today complaining of a toothache and left lower cuspid. Very poor dentition. I do not appreciate discrete swelling or erythema around that particular tooth. Discussing with radiology CT head did not include mandible, obtaining face CT with attention to mandible, contra study. Persistent elevation of leukocytes, neutrophils. Heart rate appears to be improving. Noted atelectasis in lower lobes. He denies any shortness of breath, cough, phlegm production. Add I-S. Continue Cipro, Flagyl. CTA and head CT results appreciated. Discussed with him esophageal thickening, concern for esophagitis and/or neoplastic process. Cipro and Flagyl empirically for now. PPI. Otherwise also enlarged prostate, he is having good amount of discomfort especially with Frias which had to be removed. Possibility of prostatitis, although urine otherwise not suggestive of UTI. Antibiotics as above. Will need follow-up with urology. Additionally as above similar presentation back in March 2019, also severe lactic acidosis up to 10, medical records have been requested from [facility]. Otherwise per outpatient notes has been having dental pain/abscess reported recently for which she received antibiotics. Currently is not bothered by his teeth, although says they are not in good condition. A number of teeth are either missing, broken, tooth decay. No erythema or tenderness anywhere in the gums currently. No maxillary, mandibular or submandibular tenderness. With recent dental infections unfortunately concern for possibility of bacteremia at this time, possible other occult infection site. CT abdomen pelvis noncontrast study without obvious other focus, although again noncontrast. Noted new L3 compression fracture. Assess chest x-ray. (3) Acute kidney injury superimposed on CKD: Gentle fluid challenge, follow-up blood chemistry requested. Suspect prerenal with severe acidosis, possibly ketoacidosis, degree of dehydration presentation, now possibly ATN. Monitor urine output. (4) Cholestasis: Hepatobiliary ultrasound. Gentle hydration. Empiric antibiotics for now. Suspect is more likely secondary to dehydration, although he is not fed cholelithiasis in the past but has since had cholecystectomy. Lipase is not elevated. (5) Esophagitis: PPI, sucralfate. As he is presenting with sepsis for now also empiric antibiotics as above. Discussed with him neoplastic process not excluded. Discussed he will need to follow-up with endoscopy, he verbalizes understanding. (6) Hyponatremia: With mild improvement, sodium at 127. Suspect hypovolemic, he has received fluid challenge. Follow-up sodium level. (7) Ketonuria: Transition from insulin drip to subcu insulin. Transfer upstairs. (8) Prostate enlargement: BPH, possibly of prostatitis not excluded given symptoms, although UA really not suggestive of UTI. He requested removal of Frias as it was bothering him quite a bit. Monitor urine output. For now empiric antibiotics as above, although suspicion for infection is lower but cannot entirely exclude prostatitis, although also with think less likely should cause him sepsis presentation. Follow-up with urology. Flomax. Plan Acute encephalopathy: Improved. Weaned off Precedex. Difficulty with IV access: Very difficult time obtaining IV access, 1 of diabetes 20-gauge at risk of infiltrating. AC obtained, but unclear how long therefore will stay. PICC line requested to allow for blood draws as well. Chest pain: Overnight chest pain, resolved with GI cocktail. Noted some elevation of troponin from 56-85 initial to 2 hours. Subsequently staying in the 50s. No additional elevation. Suspect demand ischemia, her, he does have risk of underlying coronary disease and will benefit from further assessment by stress testing once able. Currently chest pain-free. TTE requested. Monitor on telemetry. CKD, currently with DARWIN Gastric ulcer history: PPI COPD: Currently not in exacerbation GERD: PPI HLD HTN Diabetic neuropathy History of seizure History of stroke Nodule of right lower lung history Requested home medications to be confirmed, possibly with his sister so they can be reconciled and resumed. Attestations Medical Necessity Statement*: Continue admission for assessment management of possible occult infection, DKA, SIRS, DARWIN, additional, but it is as above. Coding Level of Care Code Critical Care >/= 30 minutes Critical care time (in minutes): 40 The high probability of a clinically significant, sudden or life threatening deterioration, as referenced in this documentation, required my full and direct attention, intervention and personal management. The critical care time shown is in addition to time spent performing any reported separately billable procedures and includes the following: [x] Data and vital sign review and interpretation [x] Patient assessment, examination and intervention [x] Medication orders and management [x] Patient/Family updates as able [x] Care Coordination and Documentation. Diagnoses Metabolic acidosis E87.20 SIRS (systemic inflammatory response syndrome) R65.10 Acute kidney injury superimposed on CKD N17.9; N18.9 Cholestasis K83.1 Esophagitis K20.90 Hyponatremia E87.1 Ketonuria R82.4 Prostate enlargement N40.0
[2022-06-25] MEDS: gabapentin 300 mg Capsule PO (20:48)
[2022-06-25 21:11] LABS: Glucose Point of Care 164 mg/dL (70-110)
[2022-06-25] MEDS: atorvastatin 40 mg Tablet PO (21:13)
[2022-06-25] MEDS: HYDROmorphone 1 mg/mL INJ 1 mL 0.5 MG IVP (22:04)
[2022-06-26] VITALS (118 sets, daily range): BP systolic 120–140; BP diastolic 73–84; PULSE 72–124; RESP 9–28; TEMP 36.8–36.9; O2SAT 81–99; BMI 17.9
[2022-06-26] MEDS: HYDROmorphone 1 mg/mL INJ 1 mL 0.4 MG IVP ×4 (01:27→22:08)
[2022-06-26] MEDS: sodium chloride 0.45% 1,000 ML 125 ML IV ×2 (01:28→08:45)
[2022-06-26] MEDS: metroNIDAZOLE IV 500 MG/100 ML PREMIX 100 MG IV ×3 (04:01→21:49)
[2022-06-26] MEDS: acetaminophen 325 mg Tablet 650 MG PO (04:01)
[2022-06-26 04:04] LABS: Basophils # 0.1 10^3/uL (0.0-0.1); Basophils % 0.5 %; Eosinophils # 0.2 10^3/uL (0.0-0.8); Eosinophils % 1.9 %; Hematocrit 33.1 % (42.0-52.0); Hemoglobin 10.5 g/dL (11.7-16.6); Lymphocytes # 1.4 10^3/uL (0.8-4.8); Lymphocytes % 11.9 %; Mean Corpuscular HGB Conc 31.7 g/dL (30.0-36.0); Mean Corpuscular Hemoglobin 28.6 pg (28.0-34.0); Mean Corpuscular Volume 90.2 fl (80-94); Mean Platelet Volume 9.9 fL (7.4-10.4); Monocytes # 1.3 10^3/uL (0.2-0.9); Monocytes % 10.7 %; Neutrophils % 74.7 %; Nucleated Red Blood Cells % 0 %; Platelet Count 217 10^3/cmm (130-400); Red Blood Count 3.67 10^6/uL (4.1-5.3); Red Cell Distribution Width 13.4 % (12.1-15.1); White Blood Count 11.9 10^3/uL (4.0-10.0)
[2022-06-26 04:23] LABS: Alanine Aminotransferase 13 U/L (0-41); Albumin Level 3.1 g/dL (3.5-5.2); Alkaline Phosphatase 110 U/L (40-130); Anion Gap 13.5 (5-19); Aspartate Amino Transferase 31 U/L (0-40); Blood Urea Nitrogen 15 mg/dL (6-20); Calcium 8.2 mg/dL (8.5-10.5); Carbon Dioxide 20 mmol/L (22-29); Chloride 99 mmol/L (98-107); Globulin 2.8 g/dL (1.3-4.6); Glomerular Filtration Rate 64.9 mL/min (90-130); Glucose 84 mg/dL (65-115); Magnesium 2.2 mg/dL (1.7-2.3); Osmolality Calculated 266 mOsm/kg (285-295); Potassium 4.5 mmol/L (3.5-5.1); Sodium 128 mmol/L (136-145); Total Bilirubin 0.5 mg/dL (0.15-1.2); Total Protein 5.9 g/dL (6.6-8.7)
[2022-06-26 04:28] LABS: Troponin T (5th) Once 64 ng/L (0-15)
[2022-06-26 04:38] LABS: Lactate (Lactic Acid level) 0.9 mmol/L (0.5-2.2)
[2022-06-26] MEDS: ciprofloxacin 400 MG/200 ML PREMIX 200 MG IV ×2 (05:47→17:17)
[2022-06-26] MEDS: sucralfate 1 gm/10 mL Oral Liq UDC PO ×4 (05:47→22:55)
--- NOTE | 2022-06-26 05:58 | PC.NURSE ---
Patient has been cooperative and calm throughout shift. Has complained of increasing tooth pain which is being met with tylenol and dilaudid. One additional dose of dilaudid administered for breakthrough pain as patient was unable to sleep. Case management has been flagged to consult concerning insurance and dental care. Patient appears to have a metal wire that is exposed due to breakage of tooth that may be coming into contact with lower teeth/gums.
--- NOTE | 2022-06-26 07:52 | XR_ITS ---
WS: [id number] Portable AP upright chest, 06/26/2022 Clinical Data: Follow up effusion Comparison: Portable chest, 06/24/2022 Findings: No nodules, masses or effusions are seen. The heart is normal. There is a patchy opacity ov erlying the right lower lobe which could represent minimal pneumonia and/or atelectasis. The right PI CC line remains in the same position. There are monitor leads on the chest wall. The pulmonary vascul arity is not increased. No pneumothorax is seen. There are monitor leads on the chest wall. XR/XR chest 1V portable [id number] Impression: 1. Development of patchy opacity in the right lower lobe. 2. No change in right PICC line.
[2022-06-26] MEDS: clopidogrel 75 mg Tablet PO (08:43)
[2022-06-26] MEDS: nicotine 21 mg Patch 1 PATCH TRANSDERMA (08:43)
[2022-06-26] MEDS: pantoprazole DR 40 mg Tablet PO (08:43)
[2022-06-26] MEDS: metoprolol succinate ER (24 HR) 50 mg Tablet 25 MG PO (08:43)
[2022-06-26] MEDS: gabapentin 300 mg Capsule PO ×3 (08:43→21:49)
[2022-06-26 11:29] LABS: Glucose Point of Care 190 mg/dL (70-110)
[2022-06-26] MEDS: enoxaparin 40 mg/0.4 mL Syringe SUBCUT (11:42)
[2022-06-26] MEDS: insulin lispro 100 unit/1 mL SUBCUT (11:43)
[2022-06-26] MEDS: ondansetron 2 mg/ML SDV 2 mL 4 MG IVP (17:17)
[2022-06-26 17:27] LABS: Glucose Point of Care 97 mg/dL (70-110)
[2022-06-26] MEDS: atorvastatin 40 mg Tablet PO (21:49)
--- NOTE | 2022-06-26 22:01 | PM.PN ---
Subjective Subjective: Today he is overall doing better. No further chest pain. No trouble swallowing. Denies difficulties with urination. Vitals/I&O/Wt Last Vital Signs Temp 98.4 F 06/26/22 15:36 Pulse 88 06/26/22 16:00 Resp 28 H 06/26/22 15:36 BP 140/84 06/26/22 02:00 Pulse Ox 98 06/26/22 09:05 O2 Del Method Room Air 06/24/22 15:55 06/26/22 06/26/22 06/26/22 06:59 14:59 22:59 Intake Total 1254.167 / 4715.970 910.417 / 737.730 2077 / 2560.417 Output Total 450 / 3250 2300 / 2300 560 / 2860 Balance 804.167 / 1465.970 -1389.583 / -9760.890 9480 / -299.583 Weight last 48 hrs Weight 56.88 kg Weight 49.895 kg Physical Exam Narrative: Hard of hearing Const: COMMON NORMALS: patient oriented x3 and alert GENERAL APPEARANCE: cooperative ORIENTATION/CONSCIOUSNESS: Yes awake HENMT: COMMON NORMALS: oropharynx normal OTHER: I do not appreciate significant redness or swelling around the tooth. Very poor dentition with multiple missing, degraded, broken teeth. Neck/C-Spine: COMMON NORMALS: no JVD Resp: COMMON NORMALS: normal respiratory effort and clear to auscultation bilaterally AUSCULTATION: clear to auscultation bilaterally Cardio: COMMON NORMALS: no JVD, regular rhythm, S1 normal heart sound present, S2 normal heart sound present and No murmurs present (Cardio) RHYTHM: regular rhythm HEART SOUNDS: S1 normal heart sound present and S2 normal heart sound present GI: COMMON NORMALS: Normal to inspection, nondistended, normoactive bowel sounds present, Soft to palpation and non-tender PALPATION: Yes Soft to palpation Extremity: COMMON NORMALS: no joint enlargement and no pedal edema Neuro: COMMON NORMALS: patient oriented x3 and moves all extremities SENSORIUM/ORIENTATION: Yes alert Skin: COMMON NORMALS: no rashes or lesions noted GENERAL SKIN EXAM: no rashes or lesions noted Urinary Catheter Management: Frias: Cath Placed During This Visit: yes Urinary Catheter Date of Insertion: 06/24/22 Urinary Catheter Time of Insertion: 08:10 Data 04/18/23 03:08 06/26/22 03:08 A&P Assessment and plan (1) SIRS (systemic inflammatory response syndrome): Not improving leukocytosis down to 11.9. Sinus tachycardia improving, currently in the 80s. Subjectively he is feeling better. Reviewed blood culture, no growth so far. Discussed with him again possible sources of infection, possibly esophagitis with wall thickening noted and with concern for possible malignant process. Other possibility of prostatitis, but denies any urinary symptoms, no tenderness or other symptoms making it of low likelihood. Periodontitis possible, CT facial bones appreciated, very poor dentition no dental abscess. Does need to have his teeth taken care of, discussed with him needing extraction. Discussed with case management. May have been combination of low-grade infection, DKA. Continue empiric antibiotic with Cipro, Flagyl. Follow-up blood culture. Denies diarrhea, stool studies uncollected. Suspected occult infection, source not entirely clear. Noted atelectasis in lower lobes. He denies any shortness of breath, cough, phlegm production. I-S. Additionally as above similar presentation back in March 2019, also severe lactic acidosis up to 10, medical records have been requested from [facility]. Records obtained. Otherwise per outpatient notes had reported dental pain/abscess reported recently for which she received antibiotics. Currently is not bothered by his teeth, although says they are not in good condition. A number of teeth are either missing, broken, tooth decay. No erythema or tenderness anywhere in the gums currently. No maxillary, mandibular or submandibular tenderness. With recent dental infections unfortunately concern for possibility of bacteremia at this time, possible other occult infection site. CT abdomen pelvis noncontrast study without obvious other focus, although again noncontrast. Multiple compression fractures including noted new L3 compression fracture. Not complaining of back pain. Will discuss with him consideration of assessment by MRI. Chest x-ray noted with development of patchy opacity in the right lower lobe. Pneumonia may be worse of his sepsis. (2) Metabolic acidosis: Continues to improve. Bicarb up to 20. Anion gap 13.5. Improved, anion gap, bicarb noted with improvement. Transition to subcutaneous insulin. Renal function noted about the same, creatinine 1.3, BUN slightly better at 17. Hypomagnesemia replaced. Anticipate lactic acid has improved. Recheck in the morning. Sodium 127, potassium better at 5.3. Cut down IVF. Possibility of DKA, urine ketones positive. Improved. Sugars have been elevated recently. For now empiric antibiotics with ciprofloxacin and Flagyl In ICU as overflow. (3) Acute kidney injury superimposed on CKD: Improving with gentle fluid challenge, follow-up blood chemistry requested. Stop IV fluid. Suspect prerenal with severe acidosis, possibly ketoacidosis, degree of dehydration presentation, now possibly ATN. Monitor urine output. (4) Cholestasis: Resolved. Hepatobiliary ultrasound noted, prior cholecystectomy, no CBD dilation. Stop hydration. Empiric antibiotics for now. Suspect is more likely secondary to dehydration, although he is not fed cholelithiasis in the past but has since had cholecystectomy. Lipase is not elevated. (5) Esophagitis: PPI, sucralfate. As he is presenting with sepsis for now also empiric antibiotics as above. Discussed with him neoplastic process not excluded. Discussed he will need to follow-up with endoscopy, he verbalizes understanding. (6) Hyponatremia: With mild improvement, sodium at 128. Suspect hypovolemic, he has received fluid challenge. Follow-up sodium level. Remove sodium restriction from diet. (7) Ketonuria: Transition from insulin drip to subcu insulin. Transfer upstairs. (8) Prostate enlargement: BPH, possibly of prostatitis not excluded given symptoms, although UA really not suggestive of UTI. He requested removal of Frias as it was bothering him quite a bit. Monitor urine output. For now empiric antibiotics as above, although suspicion for infection is lower but cannot entirely exclude prostatitis, although also with think less likely should cause him sepsis presentation. Follow-up with urology. Flomax. Plan Acute encephalopathy: Improved. Weaned off Precedex. Difficulty with IV access: Very difficult time obtaining IV access, 1 of diabetes 20-gauge at risk of infiltrating. AC obtained, but unclear how long therefore will stay. PICC line requested to allow for blood draws as well. Chest pain: Overnight chest pain, resolved with GI cocktail. Noted some elevation of troponin from 56-85 initial to 2 hours. Subsequently staying in the 50s. No additional elevation. Suspect demand ischemia, her, he does have risk of underlying coronary disease and will benefit from further assessment by stress testing once able. Currently chest pain-free. TTE noted, normal EF, grade 1 diastolic dysfunction, severe concentric LVH. Trace MVR, trace TVR, mild PVR, trace pericardial effusion. Monitor on telemetry. LVH: Noted on TTE. Resume metoprolol 50 mg dose. Optimize blood pressure control. Will need follow-up. CKD, currently with DARWIN Gastric ulcer history: PPI COPD: Currently not in exacerbation GERD: PPI HLD HTN Diabetic neuropathy History of seizure History of stroke Nodule of right lower lung history Requested home medications to be confirmed, possibly with his sister so they can be reconciled and resumed. Attestations Medical Necessity Statement*: Continue admission for assessment and management for infection sources with SIRS, suspected pneumonia, esophagitis, with poor dentition, recent dental problems, improving metabolic acidosis and DARWIN. Diagnoses SIRS (systemic inflammatory response syndrome) R65.10 Metabolic acidosis E87.20 Acute kidney injury superimposed on CKD N17.9; N18.9 Cholestasis K83.1 Esophagitis K20.90 Hyponatremia E87.1 Ketonuria R82.4 Prostate enlargement N40.0
[2022-06-26] MEDS: insulin glargine 100 units/1 mL 10 UNIT SUBCUT (22:13)
[2022-06-26 22:14] LABS: Glucose Point of Care 151 mg/dL (70-110)
[2022-06-26] MEDS: pantoprazole 40 mg SDV IVP (22:55)
[2022-06-27] VITALS: TEMP 36.6
[2022-06-27] MEDS: metroNIDAZOLE IV 500 MG/100 ML PREMIX 100 MG IV (03:56)
[2022-06-27 03:58] LABS: Basophils # 0.1 10^3/uL (0.0-0.1); Basophils % 0.8 %; Eosinophils # 0.3 10^3/uL (0.0-0.8); Eosinophils % 3.9 %; Hematocrit 35.9 % (42.0-52.0); Hemoglobin 11.4 g/dL (11.7-16.6); Lymphocytes # 1.3 10^3/uL (0.8-4.8); Lymphocytes % 16.1 %; Mean Corpuscular HGB Conc 31.8 g/dL (30.0-36.0); Mean Corpuscular Hemoglobin 28.7 pg (28.0-34.0); Mean Corpuscular Volume 90.4 fl (80-94); Mean Platelet Volume 9.7 fL (7.4-10.4); Monocytes # 0.9 10^3/uL (0.2-0.9); Monocytes % 11.1 %; Neutrophils # 5.41 10^3/uL (1.8-7.7); Neutrophils % 67.8 %; Nucleated Red Blood Cells % 0 %; Platelet Count 207 10^3/cmm (130-400); Red Blood Count 3.97 10^6/uL (4.1-5.3); Red Cell Distribution Width 13.6 % (12.1-15.1)
[2022-06-27 04:00] VITALS: BP 118/65; PULSE 75; RESP 18; TEMP 36.6; O2SAT 95
[2022-06-27] MEDS: sucralfate 1 gm/10 mL Oral Liq UDC PO ×2 (04:01→11:06)
[2022-06-27 04:26] LABS: Alanine Aminotransferase 15 U/L (0-41); Albumin Level 3.4 g/dL (3.5-5.2); Alkaline Phosphatase 120 U/L (40-130); Anion Gap 14.7 (5-19); Aspartate Amino Transferase 30 U/L (0-40); Blood Urea Nitrogen 13 mg/dL (6-20); Calcium 8.4 mg/dL (8.5-10.5); Carbon Dioxide 21 mmol/L (22-29); Chloride 102 mmol/L (98-107); Globulin 3.1 g/dL (1.3-4.6); Glomerular Filtration Rate 59.2 mL/min (90-130); Glucose 104 mg/dL (65-115); Magnesium 1.8 mg/dL (1.7-2.3); Osmolality Calculated 276 mOsm/kg (285-295); Potassium 4.7 mmol/L (3.5-5.1); Sodium 133 mmol/L (136-145); Total Bilirubin 0.5 mg/dL (0.15-1.2); Total Protein 6.5 g/dL (6.6-8.7)
[2022-06-27] MEDS: ciprofloxacin 400 MG/200 ML PREMIX 200 MG IV (05:49)
[2022-06-27 06:00] VITALS: PULSE 75; BMI 17.9
[2022-06-27 07:11] LABS: Glucose Point of Care 142 mg/dL (70-110)
[2022-06-27 08:00] VITALS: PULSE 76
[2022-06-27] MEDS: pantoprazole DR 40 mg Tablet PO (09:00)
[2022-06-27] MEDS: metoprolol succinate ER (24 HR) 50 mg Tablet PO (09:00)
[2022-06-27] MEDS: gabapentin 300 mg Capsule PO (09:00)
[2022-06-27] MEDS: clopidogrel 75 mg Tablet PO (09:00)
[2022-06-27 11:10] LABS: Glucose Point of Care 227 mg/dL (70-110)
--- NOTE | 2022-06-27 11:46 | P.DS_ITS ---
Discharge Providers Date of Admission: 06/24/22 07:00 Date of Discharge: June 27, 2022 Attending Provider at Admission: Aliyah Lance MD Attending Provider at Discharge: Del Stone Primary Care Provider: Jennifer Lundberg MD Diagnoses at Discharge Discharge Diagnosis (1) SIRS (systemic inflammatory response syndrome): Status: Acute (2) Metabolic acidosis: Status: Acute (3) Acute kidney injury superimposed on CKD: Status: Acute (4) Cholestasis: Status: Acute (5) Esophagitis: Status: Acute (6) Hyponatremia: Status: Acute (7) Ketonuria: Status: Acute (8) Prostate enlargement: Status: Acute Reason for Visit Reason for Visit: ABD PAIN Brief History: 46-year-old gentleman in ER for evaluation after vomiting, upper abdominal/lower chest rising burning pain, vomiting, initially with behavioral concerns raising his voice, making threatening stances, but eventually settled down.? Reported attributes his symptoms to initially eating something bad from the fridge, hot dog.? Has had some diarrhea. He is extremely hard of hearing, and it seems that at least in part behavioral issues may have stemmed due to lack of hearing/understanding.? His right hearing aid is not working presumably due to depleted battery and battery is low in the left. Apart from burning discomfort rising up in his chest he denies other health complaints recently.? Denies fever.? Denies chest pain elsewhere, no trouble breathing or cough, no abdominal pain.? Has history of BPH and he is complaining of Frias catheter which was placed in ER bothering him, making him feel like he has to urinate at all times, eventually request for the Frias catheter to be removed. In ER he has quite significant sinus tachycardia up to 130s with leukocytosis of 21,000, most neutrophilic 18.56.? ABG 7.42/29.4/59.6/19.2. Chemistry panel sodium 127, potassium 6.3 initially, subsequently 6, chloride 91, bicarb 21, initially 15, gap 21, initially 29.3, creatinine 1.8, glucose initially up to 300, and reports has been elevated at home. Lactic acid noted as high as 9. BUN 28, creatinine 1.7, T. bili 1.3, AST and ALT normal, alk phos 183. UA with 1+ ketones, 4+ glucose.? Unremarkable urine drug screen. CT abdomen pelvis 1. ? Small hiatal hernia with advanced esophagitis. 2. ? No small bowel obstruction, abscess or free air. 3. ? Fecal filled colon, large prostate, large bladder, and other chronic findings. 4. ? Slight upper L3 compression fracture is new from 03/18/2019. Advise correlation. In ER he received fluid resuscitation with NS boluses, received Zofran, dose of Levaquin, calcium gluconate. Very hard of hearing, hearing aid battery low. Otherwise can also read. Hospital Course Hospital Course Who was admitted to intensive care unit and treated with IV hydration, insulin drip for suspected DKA, fluid challenge for DARWIN, electrolytes were monitored, treated with empiric antibiotics for suspected possible COVID infection, with SIRS, suspected possible occult infection, possible sepsis, source unclear. CT abdomen pelvis showed small hiatal hernia with advanced esophagitis. No small bowel obstruction, abscess or free air. Fecal filled colon, large prostate, large bladder, other chronic findings. Slight upper L3 compression fracture new from March 2019. He was not bothered by back pain, had no urinary symptoms, apart from being bothered by Frias catheter which was removed, then had no difficulties with urination. No symptoms of prostatitis. He was empirically treated with Cipro and Flagyl. Some cholestasis noted on admission but likely secondary to dehydration/hypovolemia, T. bili elevation resolved with treatment. Right upper quadrant ultrasound showing prior cholecystectomy, no dilation of CBD. With difficult IV access PICC line had to be temporarily obtained. Chest x-ray confirmed placement. Lungs unremarkable without consolidation. Head CT without evidence of intracranial acute pathology. With persistent sinus tachycardia, elevated D-dimer, chest pressure and episode was assessed by chest CTA, troponin series, no PE noted on CTA, small right pleural effusion, diffuse esophageal wall thickening suggestive of esophagitis, or possibility of an underlying mass. Cholecystectomy, emphysematous changes. Bilateral dependent atelectasis versus infiltrate. Severe chronic thoracic spine compression fractures. Coronary artery atherosclerotic calcifications. Right-sided PICC line. Right adrenal 23 mm indeterminate nodule, dedicated nonemergent adrenal imaging could further characterize. Lower extremity venous duplex was without DVT. Echocardiogram with normal EF, grade 1 diastolic dysfunction, severe concentric LVH. Trace MVR, trace TVR, mild PVR. Trace pericardial effusion. On 06/25 he reported having a toothache and left lower cuspid. Recently dealt with tooth infections. His teeth are quite deteriorated with multiple missing and broken teeth. He has in the past also had developed an abscess which went up into the nasal cavity requiring drainage. CT facial bones with contrast was obtained, multifocal bilateral maxillary/mandibular dental carious lesions noted with periapical lucencies, left worse than right as described in the report, no obvious periosteal/soft tissue abscess, soft tissue gas or deep space infection. Follow-up with dentistry/maxillofacial clinical service should be obtained. Other nonacute findings in report. Repeat chest x-ray showing patchy opacity of right lower lobe. Chest pain pressure/heartburn have resolved with treatment with PPI and sucralfate. He denies any significant respiratory complaints. He will continue to complete course with ciprofloxacin and Flagyl. Discussed with him possible sources of infection, including esophagitis, possible pneumonia. We discussed with him need for follow-up with endoscopy to rule out possible neoplastic process given findings on CTA. He states that he follows with his primary provider who referred him [facility] and states that he will seek referral internally. Additionally discussed with him periodontitis, and recurrent dental infections. Discussed he is at risk of recurrence and at risk of spread of infection locally and/for bacteremia and distant spread with risk of disability and/or in case of infection spread to other organs. He verbalized understanding, understands that he needs to have the teeth extracted, additionally case management has found for him an oral surgeon which accepts Medicaid, he is provided with this information but neurosurgeons request that referral must come from his dentist and cannot come directly from us, but he also wants to make sure to arrange for dentures before he proceeds to extraction. Discussed with him not to delay treatment as it may lead to the above complications. Please follow-up that he gets extraction of the bed and/or all remaining teeth otherwise he will be at risk of recurrent/complicated i nfections from this. He is otherwise doing much better, feels back to his usual self, ready to return home. Due to episode of chest pressure/pain in the hospital, although this did respond to GI cocktail and with esophagitis was likely related to that, with moderate troponin elevation with risk factors for coronary disease he is referred for additional assessment by stress test. Please follow-up. Please follow-up regarding LVH. He is continued on metoprolol. Encouraged to continue closely monitoring his blood pressure. Continue to optimize control. Continue to optimize cardiovascular risk factors. On presentation with acute kidney injury which has been improving. Please follow-up kidney function. On presentation with hyponatremia which has been gradually improving. Do not limit sodium intake. Please follow-up sodium level. Continue to optimize diabetes control, he is also started on sliding scale insulin. Please seek additional instigation of right adrenal nodule. History of right lung nodule reported, please follow-up. Please assess enlarged prostate. he is started on tamsulosin. Consider referral to urology. Additionally noted new L3 compression fracture, multiple thoracic compression fractures, although no back pain. Please follow-up MRI results for any pathologic fracture, please further refer for assessment for osteoporosis. Physical Exam Narrative: Hearing better, batteries and hearing aids have been replaced Const: COMMON NORMALS: patient oriented x3 and alert GENERAL APPEARANCE: cooperative ORIENTATION/CONSCIOUSNESS: Yes awake HENMT: COMMON NORMALS: oropharynx normal OTHER: I do not appreciate significant redness or swelling around the tooth. Very poor dentition with multiple missing, degraded, broken teeth. Neck/C-Spine: COMMON NORMALS: no JVD Resp: COMMON NORMALS: normal respiratory effort and clear to auscultation bilaterally AUSCULTATION: clear to auscultation bilaterally Cardio: COMMON NORMALS: no JVD, regular rhythm, S1 normal heart sound present, S2 normal heart sound present and No murmurs present (Cardio) RHYTHM: regular rhythm HEART SOUNDS: S1 normal heart sound present and S2 normal heart sound present GI: COMMON NORMALS: Normal to inspection, nondistended, normoactive bowel sounds present, Soft to palpation and non-tender PALPATION: Yes Soft to palpation Extremity: COMMON NORMALS: no joint enlargement and no pedal edema Neuro: COMMON NORMALS: patient oriented x3 and moves all extremities SENSORIUM/ORIENTATION: Yes alert Skin: COMMON NORMALS: no rashes or lesions noted GENERAL SKIN EXAM: no rashes or lesions noted Urinary Catheter Management: Frias: Cath Placed During This Visit: yes Urinary Catheter Date of Insertion: 06/24/22 Urinary Catheter Time of Insertion: 08:10 Discharge Data Studies Completed and Pending Completed Studies During Hospitalization Category Date Time Status CT abdomen pelvis wo con [id number] Stat Cat Scan 06/24/22 00:[address] facial bones w con [id number] Routine Cat Scan 06/25/22 14:[address] head wo con* [id number] Stat Cat Scan 06/24/22 17:33 Completed CTA chest [CT angio chest PE protcl [id number]] Stat Cat Scan 06/24/22 17:36 Completed CXRP [XR chest 1V portable [id number]] Routine Exams 06/26/22 07:52 Completed XR chest 1V portable [id number] Stat Exams 06/24/22 14:56 [place] [id number] Routine Ultrasound 06/24/22 19:54 Completed CV. echo complete* [id number] Routine Ultrasound 06/25/22 19:03 Completed US abdomen limited [id number] Routine Ultrasound 06/24/22 11:21 Completed Pending at discharge Category Date Time Status Blood Culture Stat Lab 06/24/22 11:17 Results Blood Cultures ([facility]) Routine Lab 06/24/22 13:20 Received C DIFF [Clostridioides Difficile PCR] Routine Lab 06/24/22 11:33 Uncollected Stool Culture, Bacterial [Enteric Bacterial Panel by Lab 06/24/22 11:33 Uncollected PCR] Routine stool Ova and Parasite [Enteric Parasite Panel by PCR] Lab 06/24/22 11:33 Uncollected Routine Radiology Impressions Abdomen/Pelvis CT 06/24/22 00:02 IMPRESSION: 1. Small hiatal hernia with advanced esophagitis. 2. No small bowel obstruction, abscess or free air. 3. Fecal filled colon, large prostate, large bladder, and other chronic findings. 4. Slight upper L3 compression fracture is new from 03/18/2019. Advise correlation. Abdomen Ultrasound 06/24/22 11:21 IMPRESSION: Right pleural effusion. Head CT 06/24/22 17:33 IMPRESSION: 1. No CT evidence of acute intracranial pathology. 2. Additional findings, as above. Chest CTA 06/24/22 17:36 IMPRESSION: 1. Negative for pulmonary embolus. 2. Small right pleural effusion. 3. Diffuse esophageal wall thickening suggestive of esophagitis a or possibly an underlying mass. 4. Cholecystectomy. 5. Emphysematous changes. 6. Bilateral dependent atelectasis versus infiltrate. 7. Several chronic thoracic spine compression fractures. 8. Coronary artery atherosclerotic calcifications. 9. Right-sided PICC line. 10. Right adrenal 23 mm indeterminate nodule, dedicated nonemergent adrenal imaging could further characterize this. Venous Duplex 06/24/22 19:54 IMPRESSION: No evidence of deep vein thrombosis. Face CT 06/25/22 14:19 IMPRESSION: 1. Multifocal bilateral maxillary/mandibular dental carious lesions and periapical lucencies, left worse than right as described above. No obvious periosteal/soft tissue abscess, soft tissue gas or deep space infection. Follow-up with dentistry/maxillofacial clinical service should be obtained. 2. Other nonacute findings as described. Chest X-Ray 06/26/22 07:52 Impression: 1. Development of patchy opacity in the right lower lobe. 2. No change in right PICC line. Laboratory Results WBC 8.0 10^3/uL (4.0-10.0) 06/27/22 03:34 RBC 3.97 10^6/uL (4.1-5.3) L 06/27/22 03:34 Hgb 11.4 g/dL (11.7-16.6) L 06/27/22 03:34 Hct 35.9 % (42.0-52.0) L 06/27/22 03:34 MCV 90.4 fl (80-94) 06/27/22 03:34 MCH 28.7 pg (28.0-34.0) 06/27/22 03:34 MCHC 31.8 g/dL (30.0-36.0) 06/27/22 03:34 RDW 13.6 % (12.1-15.1) 06/27/22 03:34 Plt Count 207 10^3/cmm (130-400) 06/27/22 03:34 MPV 9.7 fL (7.4-10.4) 06/27/22 03:34 Neut % (Auto) 67.8 % 06/27/22 03:34 Lymph % (Auto) 16.1 % 06/27/22 03:34 [place] % (Auto) 11.1 % 06/27/22 03:34 Eos % (Auto) 3.9 % 06/27/22 03:34 Baso % (Auto) 0.8 % 06/27/22 03:34 Neut # (Auto) 5.41 10^3/uL (1.8-7.7) 06/27/22 03:34 Lymph # (Auto) 1.3 10^3/uL (0.8-4.8) 06/27/22 03:34 [place] # (Auto) 0.9 10^3/uL (0.2-0.9) 06/27/22 03:34 Eos # (Auto) 0.3 10^3/uL (0.0-0.8) 06/27/22 03:34 Baso # (Auto) 0.1 10^3/uL (0.0-0.1) 06/27/22 03:34 Nucleated RBC % (auto) 0 % 06/27/22 03:34 Nucleated RBCs # 0.0 /100WBC 06/27/22 03:34 D-Dimer 3.19 ug/mIFEU (0-0.59) H 06/24/22 13:13 Specimen Type Arterial 06/24/22 01:07 Sample Site Brachial, left 06/24/22 01:07 ABG pH 7.42 (7.35-7.45) 06/24/22 01:07 ABG pCO2 29.4 mmHg (35-45) L 06/24/22 01:07 ABG pO2 89.6 mmHg (80.0-100.0) 06/24/22 01:07 ABG HCO3 19.2 mmol/L (22-26) L 06/24/22 01:07 ABG Base Excess -3.8 mmol/L (-2.0-2.0) L 06/24/22 01:07 Jaya Test N/a 06/24/22 01:07 Hematocrit 46.6 % (42-52) 06/24/22 01:07 O2 Delivery Device None 06/24/22 01:07 FiO2 21.0 % 06/24/22 01:07 Compensation Intern ID Alewe 06/24/22 01:07 Sodium 133 mmol/L (136-145) L 06/27/22 03:34 Potassium 4.7 mmol/L (3.5-5.1) 06/27/22 03:34 Chloride 102 mmol/L (98-107) 06/27/22 03:34 Carbon Dioxide 21 mmol/L (22-29) L 06/27/22 03:34 Anion Gap 14.7 (5-19) 06/27/22 03:34 BUN 13 mg/dL (6-20) 06/27/22 03:34 Creatinine 1.3 mg/dL (0.7-1.2) H 06/27/22 03:34 GFR Calculation 59.2 mL/min (90-130) L 06/27/22 03:34 Glucose 104 mg/dL (65-115) 06/27/22 03:34 POC Glucose 227 mg/dL (70-110) H 06/27/22 11:02 Calculated Osmolality 276 mOsm/kg (285-295) L 06/27/22 03:34 Lactic Acid 9.0 mmol/L (0.5-2.2) H* 06/24/22 02:00 Lactate 0.9 mmol/L (0.5-2.2) 06/26/22 03:08 Calcium 8.4 mg/dL (8.5-10.5) L 06/27/22 03:34 Phosphorus 2.2 mg/dL (2.5-4.5) L 06/25/22 03:39 Magnesium 1.8 mg/dL (1.7-2.3) 06/27/22 03:34 Total Bilirubin 0.5 mg/dL (0.15-1.2) 06/27/22 03:34 AST 30 U/L (0-40) 06/27/22 03:34 ALT 15 U/L (0-41) 06/27/22 03:34 Alkaline Phosphatase 120 U/L (40-130) 06/27/22 03:34 Troponin T Gen 5 ng/L 64 ng/L (0-15) H 06/26/22 03:08 Troponin T Baseline 56 ng/L (0-15) H 06/24/22 13:13 Troponin T 120 Minute 53.16 ng/L (0-15) H 06/24/22 15:22 Delta Troponin T -2.84 ABS# (0-10) L 06/24/22 15:22 Troponin T Hi Sens 6Hr 57.91 ng/L (0-15) H 06/24/22 19:11 Troponin T Hi Sens 6Hr Delta 1.91 ng/L (0-12) 06/24/22 19:11 Total Protein 6.5 g/dL (6.6-8.7) L 06/27/22 03:34 Albumin 3.4 g/dL (3.5-5.2) L 06/27/22 03:34 Globulin 3.1 g/dL (1.3-4.6) 06/27/22 03:34 Lipase 18 U/L (13-60) 04/15/23 22:25 TSH 1.53 uIU/mL (0.27-4.20) 06/24/22 06:04 Urine Color Yellow (Yellow) 06/24/22 04:29 Urine Appearance Clear (CLEAR) 06/24/22 04:29 Urine pH 6.5 (5-7) 06/24/22 04:29 Ur Specific [place] 1.010 (1.005-1.030) 06/24/22 04:29 Urine Protein 1+ (Negative) H 06/24/22 04:29 Urine Glucose (UA) 4+ (Normal) H 06/24/22 04:29 Urine Ketones 1+ (Negative) H 06/24/22 04:29 Urine Blood Neg (Negative) 06/24/22 04:29 Urine Nitrate Negative (Negative) 06/24/22 04:29 Urine Bilirubin Neg (Negative) 06/24/22 04:29 Urine Urobilinogen Norm mg/dL (Negative) 06/24/22 04:29 Ur Leukocyte Esterase Negative (Negative) 06/24/22 04:29 Urine RBC None /hpf (0-2) 06/24/22 04:29 Urine WBC None /hpf (0-5) 06/24/22 04:29 Ur Squamous Epith Cells None /hpf (0-5) 06/24/22 04:29 Amorphous Sediment Not Reportable 06/24/22 04:29 Urine Bacteria None /hpf (NONE) 06/24/22 04:29 Urine Opiates Screen Negative ng/mL (Negative) 06/24/22 04:29 Ur Barbiturates Screen Negative ng/mL (Negative) 06/24/22 04:29 Ur Phencyclidine Scrn Negative ng/mL (Negative) 06/24/22 04:29 Ur Amphetamines Screen Negative ng/mL (Negative) 06/24/22 04:29 U Benzodiazepines Scrn Negative ng/mL (Negative) 06/24/22 04:29 Urine Cocaine Screen Negative ng/mL (Negative) 06/24/22 04:29 U Marijuana (THC) Screen Negative ng/mL (Negative) 06/24/22 04:29 Ethyl Alcohol < 10 mg/dL (0-10) 06/23/22 22:28 Serum Ketones Negative (Negative) 06/24/22 02:00 Misc Test Reference see comments 06/24/22 13:20 Vitals Last Vital Signs Temp 97.9 F 06/27/22 04:00 Pulse 76 06/27/22 08:00 Resp 18 06/27/22 04:00 BP 118/65 06/27/22 04:00 Pulse Ox 95 06/27/22 04:00 O2 Del Method Room Air 06/27/22 04:00 Discharge Plan Discharge Patient Disposition: Home Condition: Stable Prescriptions: New Humalog U-100 Insulin 100 unit/mL Solution See Rx Instructions .ROUTE .COMPLEX Qty: 10 3RF Rx Instructions: TIDWM Glucose: 141-180 - 2 units 181-220 - 3 221-260 - 4 261-300 - 5 301-350 - 6 351-400 - 7 >400 - 8 units ciprofloxacin HCl 500 mg tablet 500 mg PO BID Qty: 10 0RF metronidazole 500 mg tablet 500 mg PO Q8H 5 Days Qty: 15 0RF Flomax 0.4 mg capsule 0.4 mg PO DAILY Qty: 90 0RF Continued (DME) Dexcom G6 [employer] Misc See Rx Instructions .Route Qty: 1 3RF Rx Instructions: Check blood sugar at least 3 times a day (DME) Dexcom G6 Transmitter Device See Rx Instructions .Route Qty: 1 3RF Rx Instructions: As directed cyanocobalamin (vitamin B-12) 100 mcg tablet 100 mcg PO .COMPLEX Rx Instructions: 100 mcg PO daily; insulin aspart U-100 [Novolog FlexPen U-100 Insulin] 100 unit/mL (3 mL) insulin pen See Rx Instructions .ROUTE .COMPLEX Qty: 15 5RF Hold Instructions: Doctor's Order Dose Instruction: INJECT 2 UNITS SUBCUTANEOSULY THREE TIMES DAILY WITH THE SLIDING SCALE FOR 30 DAYS * MAXIMUM DAILY DOSE OF 6 UNITS Rx Instructions: INJECT 2 UNITS SUBCUTANEOSULY THREE TIMES DAILY WITH THE SLIDING SCALE FOR 30 DAYS * MAXIMUM DAILY DOSE OF 6 UNITS Lantus Solostar U-100 Insulin 100 unit/mL (3 mL) insulin pen 12 unit SUBCUT DAILY amitriptyline 50 mg tablet 50 mg PO .at bedtime PRN (Reason: insomnia) 30 Days Qty: 30 5RF Rx Instructions: FOR SLEEP atorvastatin 40 mg tablet 40 mg PO .at bedtime 30 Days Qty: 30 5RF Rx Instructions: FOR CHOLESTEROL clopidogrel 75 mg tablet 75 mg PO DAILY 30 Days Qty: 30 5RF Rx Instructions: BLOOD THINNER cyclobenzaprine 10 mg tablet 10 mg PO TID PRN (Reason: muscle spasm) 30 Days Qty: 60 5RF Rx Instructions: FOR MUSCLE PAIN metoprolol succinate 50 mg tablet extended release 24 hr 50 mg PO DAILY 30 Days Qty: 30 5RF Rx Instructions: FOR BLOOD PRESSURE gabapentin 300 mg capsule 300 mg PO TID 30 Days Qty: 90 5RF Rx Instructions: FOR PAIN IN FEET pantoprazole 40 mg tablet,delayed release (DR/EC) 40 mg PO DAILY 30 Days Qty: 30 5RF Probiotic 1 tab PO DAILY (DME) pen needle, diabetic [Ultra-Thin II Ins Pen [place]] 29 gauge x 1/2 needle See Rx Instructions .ROUTE .MEDSUPPLY Qty: 100 2RF Rx Instructions: Tech lite pen needles (DME) Comfort EZ Pen [place] 32 gauge x 5/16 needle See Rx Instructions .Route Qty: 100 5RF Rx Instructions: To use with insulin (DME) Dexcom G6 Sensor Device See Rx Instructions .Route Qty: 6 0RF Rx Instructions: change every 10 days Discharge Orders: Discharge Order (Routine); Ordered 06/27/22 Ordered By: Del Stone Other Ambulatory Orders: Sestamibi Stress Test Request (Routine) Timeframe: 1 Week Facility: [facility] - Location: Cardiac Diagnostic Laboratory Ordered By: Del Stone MR lumbar spine wo/w con [id number] (Routine) Timeframe: 1 Week Facility: [facility] - Location: Radiology [facility] Ordered By: Del Stone MR thoracic spine wo/w [id number] (Routine) Timeframe: 1 Week Facility: [facility] - Location: Radiology [facility] Ordered By: Del Stone Referrals: [facility] [Other] [facility] [Other] Jennifer Lundberg MD [Primary Care Provider] - 4-7 days Discharge Diet: As Directed and Diabetic Discharge Activity: Increase activity as tolerated Patient Instructions: Enlarged Prostate (BPH) (GEN), Tooth Extraction (GEN), Esophagitis (GEN), Periodontal Disease (GEN) Activity Restrictions/Additional Instructions: Follow-up with oral surgery for extraction of bad teeth to prevent recurrence of further dental infections. You will need referral from your dentist to get in with the oral surgeon. You are at risk of recurrent infection until your teeth are taken care of and recurrent infection may lead to abscess formation, spread of infection as you are aware either in your head, or infection spreading to your bloodstream elsewhere and causing abscess in other locations, including central nervous system and risking severe disability and/or overwhelming infection and . Please do not delay follow-up. Additionally as discussed, request referral with your primary doctor for endoscopic evaluation of thickening of your esophagus. You were continued on acid elizabeth medication due to esophagitis, but thickening needs further investigation to include tumor/neoplasm or other concerning process. Follow-up with your primary doctor for further investigation of prostate enlargement. Please have your primary doctor reassess your kidney function as you had kidney injury on admission which so far has been improving. Please have your primary doctor reassess your sodium level as you had low sodium. Do not limit sodium intake. Follow-up with your primary doctor regarding diabetes with suspected ketoacidosis on presentation. Continue to monitor your blood glucose, continue insulin. Sliding scale insulin is added 3 times a day. You are also referred for stress testing to additionally assess your heart for coronary artery disease, please follow-up with your primary doctor for results. Please follow-up with your primary doctor regarding thickening of the left ventricle (left ventricular hypertrophy), continue metoprolol, continue to monitor blood pressure closely at home 3 times daily, write down values to bring to your appointment to further help control blood pressures. Avoid dehydration. Follow-up regarding right lower lung nodule, and chronic conditions. Follow-up with your primary doctor regarding new lumbar (L3) compression fracture. You are referred for additional assessment with MRI to further assess for pathologic fracture. Follow-up MRI with your primary doctor. Abdomen further referred for assessment for osteoporosis. In case you experience fever, persistent headache, chest abdomen or back pain, return of chest pain, feeling unwell, any other concerning symptoms seek medical attention. Please speak with your primary doctor about obtaining additional imaging of of 23 mm right adrenal nodule. Discharge Attestations Time Spent in Discharge Care*: greater than 30 min Quality Metrics Clinical Quality Measures [ No reported AMI, CVA or VTE this stay] Coding Level of Care Code 83234 Total time (in minutes) for Discharge: 65 Diagnoses SIRS (systemic inflammatory response syndrome) R65.10 Metabolic acidosis E87.20 Acute kidney injury superimposed on CKD N17.9; N18.9 Cholestasis K83.1 Esophagitis K20.90 Hyponatremia E87.1 Ketonuria R82.4 Prostate enlargement N40.0
[2022-06-27 12:00] VITALS: PULSE 89
[2022-06-27 14:19] VITALS: PULSE 89
== END 2022-06-27 14:19 | disposition home or self-care (01) | DRG 682 ==
LOC: ER 06-24 07:11 → ICU 06-24 07:25
PROVIDERS: Physician Assistant; Admitting Provider Internal Medicine; Emergency Provider Emergency Medicine; PCP Family Medicine; Visit Provider Internal Medicine
DX: N17.9 Acute kidney failure, unspecified (principal); E11.10 Type 2 diabetes mellitus with ketoacidosis without coma; J18.9 Pneumonia, unspecified organism; J44.0 Chronic obstructive pulmonary disease with (acute) lower respiratory infection; G93.40 Encephalopathy, unspecified; E87.1 Hypo-osmolality and hyponatremia; E87.20 Acidosis, unspecified; K44.9 Diaphragmatic hernia without obstruction or gangrene; K20.90 Esophagitis, unspecified without bleeding; H91.93 Unspecified hearing loss, bilateral; Z97.4 Presence of external hearing-aid; E86.0 Dehydration; K08.89 Other specified disorders of teeth and supporting structures; N40.0 Benign prostatic hyperplasia without lower urinary tract symptoms; Z79.4 Long term (current) use of insulin; Z79.02 Long term (current) use of antithrombotics/antiplatelets; E11.22 Type 2 diabetes mellitus with diabetic chronic kidney disease; I12.9 Hypertensive chronic kidney disease with stage 1 through stage 4 chronic kidney disease, or unspecified chronic kidney disease; N18.9 Chronic kidney disease, unspecified; E11.43 Type 2 diabetes mellitus with diabetic autonomic (poly)neuropathy; K21.9 Gastro-esophageal reflux disease without esophagitis; E78.5 Hyperlipidemia, unspecified; Z86.73 Personal history of transient ischemic attack (TIA), and cerebral infarction without residual deficits; F17.210 Nicotine dependence, cigarettes, uncomplicated; Z87.11 Personal history of peptic ulcer disease; K80.20 Calculus of gallbladder without cholecystitis without obstruction
CPT/HCPCS: 36415; 36416; 36569; 36600; 51702; 70450; 70487; 71045; 71275; 74176; 76705; 80048; 80053; 80306; 80307; 81001; 82009; 82803; 82962; 83605; 83690; 83735; 84100; 84443; 84484; 85025; 85378; 86000; 87040; 93005; 93306; 93970; 96365; 96372; 96375; 96376; 99285; C1751; C9113; J0610; J0744; J1170; J1630; J1650; J1815; J1956; J2270; J2405; J3475; J3490; J7030; J7050; J7799; Q9967

== ENCOUNTER → 2022-07-09 08:28 | Outpatient (BNVA) | payer MEDICAID, SELFPAY | PROVIDERS: PCP Family Medicine; Visit Provider Internal Medicine | DX: E11.40 Type 2 diabetes mellitus with diabetic neuropathy, unspecified (principal); E11.649 Type 2 diabetes mellitus with hypoglycemia without coma; E11.22 Type 2 diabetes mellitus with diabetic chronic kidney disease; E11.65 Type 2 diabetes mellitus with hyperglycemia; I63.89 Other cerebral infarction; E16.0 Drug-induced hypoglycemia without coma; T38.3X5A Adverse effect of insulin and oral hypoglycemic [antidiabetic] drugs, initial encounter; X58.XXXA Exposure to other specified factors, initial encounter; N18.2 Chronic kidney disease, stage 2 (mild); Z86.73 Personal history of transient ischemic attack (TIA), and cerebral infarction without residual deficits; Z79.4 Long term (current) use of insulin | CPT/HCPCS: 99214 ==

== ENCOUNTER → 2022-07-19 08:30 | Outpatient (BNVA) | payer MEDICAID, SELFPAY | PROVIDERS: PCP Family Medicine; Visit Provider Family Medicine | DX: E11.9 Type 2 diabetes mellitus without complications (principal); N18.9 Chronic kidney disease, unspecified; K29.70 Gastritis, unspecified, without bleeding; R00.0 Tachycardia, unspecified; I10 Essential (primary) hypertension; M79.604 Pain in right leg; I63.9 Cerebral infarction, unspecified; Z79.4 Long term (current) use of insulin; G47.00 Insomnia, unspecified; K29.01 Acute gastritis with bleeding; A41.9 Sepsis, unspecified organism; R65.20 Severe sepsis without septic shock; N17.9 Acute kidney failure, unspecified; K20.90 Esophagitis, unspecified without bleeding; N40.0 Benign prostatic hyperplasia without lower urinary tract symptoms; G47.01 Insomnia due to medical condition | CPT/HCPCS: 80053; 83036; 85025 ==

== ENCOUNTER → 2022-09-24 08:38 | Outpatient (BNVA) | payer MEDICAID, SELFPAY | PROVIDERS: PCP Family Medicine; Visit Provider Family Medicine | DX: K29.70 Gastritis, unspecified, without bleeding (principal); E08.43 Diabetes mellitus due to underlying condition with diabetic autonomic (poly)neuropathy; E11.65 Type 2 diabetes mellitus with hyperglycemia; E13.9 Other specified diabetes mellitus without complications; E16.0 Drug-induced hypoglycemia without coma; I63.9 Cerebral infarction, unspecified; N18.9 Chronic kidney disease, unspecified; T38.3X5A Adverse effect of insulin and oral hypoglycemic [antidiabetic] drugs, initial encounter; Z79.4 Long term (current) use of insulin; Z12.11 Encounter for screening for malignant neoplasm of colon; K29.01 Acute gastritis with bleeding; N17.9 Acute kidney failure, unspecified; Z68.1 Body mass index [BMI] 19.9 or less, adult; E78.5 Hyperlipidemia, unspecified; E27.8 Other specified disorders of adrenal gland; Z12.2 Encounter for screening for malignant neoplasm of respiratory organs | CPT/HCPCS: 80053; 80061; 82043; 83036 ==

== ENCOUNTER → 2022-09-26 08:56 | Outpatient (BNVA) | payer MEDICAID, SELFPAY | PROVIDERS: PCP Family Medicine; Visit Provider Family Medicine | DX: N17.9 Acute kidney failure, unspecified (principal); E27.8 Other specified disorders of adrenal gland | CPT/HCPCS: 81000 ==

== ENCOUNTER → 2022-10-10 08:36 | Outpatient (BNVA) | payer MEDICAID, SELFPAY | PROVIDERS: PCP Family Medicine; Visit Provider Internal Medicine | DX: E11.65 Type 2 diabetes mellitus with hyperglycemia; E11.649 Type 2 diabetes mellitus with hypoglycemia without coma; E11.22 Type 2 diabetes mellitus with diabetic chronic kidney disease; N18.2 Chronic kidney disease, stage 2 (mild); I63.9 Cerebral infarction, unspecified; E16.0 Drug-induced hypoglycemia without coma; I63.89 Other cerebral infarction; T38.3X5A Adverse effect of insulin and oral hypoglycemic [antidiabetic] drugs, initial encounter; X58.XXXA Exposure to other specified factors, initial encounter; Z79.4 Long term (current) use of insulin | CPT/HCPCS: 99215 ==

== ENCOUNTER → 2022-12-25 10:49 | Outpatient (BNVA) | payer MEDICAID, SELFPAY | PROVIDERS: PCP Family Medicine; Visit Provider Family Medicine | DX: G47.00 Insomnia, unspecified (principal); E11.69 Type 2 diabetes mellitus with other specified complication; Z79.4 Long term (current) use of insulin; I63.9 Cerebral infarction, unspecified; M79.604 Pain in right leg; E08.43 Diabetes mellitus due to underlying condition with diabetic autonomic (poly)neuropathy; R00.0 Tachycardia, unspecified; I10 Essential (primary) hypertension; K29.70 Gastritis, unspecified, without bleeding; E11.9 Type 2 diabetes mellitus without complications; K29.01 Acute gastritis with bleeding; N17.9 Acute kidney failure, unspecified; Z68.1 Body mass index [BMI] 19.9 or less, adult; K02.9 Dental caries, unspecified | CPT/HCPCS: 80053; 83036 ==

== ENCOUNTER → 2023-04-12 11:08 | Outpatient (BNVA) | payer MEDICAID, SELFPAY | PROVIDERS: PCP Family Medicine; Visit Provider Internal Medicine | DX: E11.65 Type 2 diabetes mellitus with hyperglycemia; N18.9 Chronic kidney disease, unspecified; I63.89 Other cerebral infarction; Z79.4 Long term (current) use of insulin; E16.0 Drug-induced hypoglycemia without coma; T38.3X5A Adverse effect of insulin and oral hypoglycemic [antidiabetic] drugs, initial encounter; E11.649 Type 2 diabetes mellitus with hypoglycemia without coma; E11.22 Type 2 diabetes mellitus with diabetic chronic kidney disease; X58.XXXA Exposure to other specified factors, initial encounter; E78.5 Hyperlipidemia, unspecified | CPT/HCPCS: 99214 ==

== ENCOUNTER → 2023-06-25 11:21 | Outpatient (BNVA) | payer MEDICAID, SELFPAY | PROVIDERS: PCP Family Medicine; Visit Provider Family Medicine | DX: M25.50 Pain in unspecified joint (principal); G89.29 Other chronic pain; Z68.1 Body mass index [BMI] 19.9 or less, adult; N40.0 Benign prostatic hyperplasia without lower urinary tract symptoms; E13.9 Other specified diabetes mellitus without complications; E08.43 Diabetes mellitus due to underlying condition with diabetic autonomic (poly)neuropathy; E11.65 Type 2 diabetes mellitus with hyperglycemia; N18.9 Chronic kidney disease, unspecified; I63.9 Cerebral infarction, unspecified; Z79.4 Long term (current) use of insulin; E16.0 Drug-induced hypoglycemia without coma; T38.3X5A Adverse effect of insulin and oral hypoglycemic [antidiabetic] drugs, initial encounter; Z12.5 Encounter for screening for malignant neoplasm of prostate; K29.01 Acute gastritis with bleeding; I10 Essential (primary) hypertension; K08.109 Complete loss of teeth, unspecified cause, unspecified class | CPT/HCPCS: 80053; 80061; 83036; 84153; 85025 ==

== ENCOUNTER → 2023-06-26 15:18 | Outpatient (BNVA) | payer MEDICAID, SELFPAY | PROVIDERS: PCP Family Medicine; Referring Provider Internal Medicine; Visit Provider Internal Medicine | DX: E13.9 Other specified diabetes mellitus without complications (principal); E08.43 Diabetes mellitus due to underlying condition with diabetic autonomic (poly)neuropathy; E11.65 Type 2 diabetes mellitus with hyperglycemia; N18.9 Chronic kidney disease, unspecified; I63.9 Cerebral infarction, unspecified; Z79.4 Long term (current) use of insulin; E16.0 Drug-induced hypoglycemia without coma; T38.3X5A Adverse effect of insulin and oral hypoglycemic [antidiabetic] drugs, initial encounter | CPT/HCPCS: 82043 ==

== ENCOUNTER → 2023-08-12 10:39 | Outpatient (BNVA) | payer MEDICAID, SELFPAY | PROVIDERS: PCP Family Medicine; Visit Provider Internal Medicine | DX: E11.65 Type 2 diabetes mellitus with hyperglycemia; E16.0 Drug-induced hypoglycemia without coma; T38.3X5A Adverse effect of insulin and oral hypoglycemic [antidiabetic] drugs, initial encounter; Z79.4 Long term (current) use of insulin; B35.1 Tinea unguium; N18.9 Chronic kidney disease, unspecified; I63.89 Other cerebral infarction; E11.649 Type 2 diabetes mellitus with hypoglycemia without coma; E11.22 Type 2 diabetes mellitus with diabetic chronic kidney disease; X58.XXXA Exposure to other specified factors, initial encounter | CPT/HCPCS: 99214 ==

== ENCOUNTER → 2023-08-15 13:09 | Outpatient (BNVA) | payer MEDICAID, SELFPAY | PROVIDERS: PCP Family Medicine; Visit Provider Podiatrist Foot & Ankle Surgery | DX: L60.3 Nail dystrophy (principal); G62.9 Polyneuropathy, unspecified; E13.42 Other specified diabetes mellitus with diabetic polyneuropathy; Z79.4 Long term (current) use of insulin | CPT/HCPCS: 11721; 99203 ==

== ENCOUNTER → 2023-12-31 08:49 | Outpatient (BNVA) | payer MEDICAID, SELFPAY | PROVIDERS: PCP Family Medicine; Visit Provider Family Medicine | DX: I10 Essential (primary) hypertension (principal); E78.5 Hyperlipidemia, unspecified; E13.9 Other specified diabetes mellitus without complications; E16.0 Drug-induced hypoglycemia without coma; T38.3X5A Adverse effect of insulin and oral hypoglycemic [antidiabetic] drugs, initial encounter; Z79.4 Long term (current) use of insulin | CPT/HCPCS: 80053; 80061; 82043; 82533; 83036; 83721; 83735 ==

== ENCOUNTER → 2024-02-11 09:36 | Outpatient (BNVA) | payer MEDICAID, SELFPAY | PROVIDERS: PCP Family Medicine; Visit Provider Podiatrist Foot & Ankle Surgery | DX: L60.3 Nail dystrophy (principal); G62.9 Polyneuropathy, unspecified; E13.42 Other specified diabetes mellitus with diabetic polyneuropathy; Z79.4 Long term (current) use of insulin | CPT/HCPCS: 99213 ==

== ENCOUNTER → 2024-07-07 13:42 | Outpatient (BNVA) | payer MEDICAID, SELFPAY | PROVIDERS: PCP Family Medicine; Visit Provider Family Medicine | DX: E11.65 Type 2 diabetes mellitus with hyperglycemia (principal); E16.0 Drug-induced hypoglycemia without coma; T38.3X5A Adverse effect of insulin and oral hypoglycemic [antidiabetic] drugs, initial encounter; Z79.4 Long term (current) use of insulin; X58.XXXA Exposure to other specified factors, initial encounter | CPT/HCPCS: 80053; 80061; 83036 ==

== ENCOUNTER → 2024-08-11 10:47 | Outpatient (BNVA) | payer MEDICAID, SELFPAY | PROVIDERS: PCP Family Medicine; Visit Provider Internal Medicine | DX: E11.65 Type 2 diabetes mellitus with hyperglycemia (principal); N18.9 Chronic kidney disease, unspecified; I63.89 Other cerebral infarction; Z79.4 Long term (current) use of insulin; E16.0 Drug-induced hypoglycemia without coma; T38.3X5A Adverse effect of insulin and oral hypoglycemic [antidiabetic] drugs, initial encounter; B35.1 Tinea unguium; L60.3 Nail dystrophy; G62.9 Polyneuropathy, unspecified; E11.43 Type 2 diabetes mellitus with diabetic autonomic (poly)neuropathy | CPT/HCPCS: 99213; 99215 ==

== ENCOUNTER → 2024-10-27 13:57 | Outpatient (BNVA) | payer MEDICAID, SELFPAY | PROVIDERS: PCP Family Medicine; Visit Provider Family Medicine | DX: E11.65 Type 2 diabetes mellitus with hyperglycemia (principal); N18.9 Chronic kidney disease, unspecified; Z79.4 Long term (current) use of insulin; E16.0 Drug-induced hypoglycemia without coma; T38.3X5A Adverse effect of insulin and oral hypoglycemic [antidiabetic] drugs, initial encounter; X58.XXXA Exposure to other specified factors, initial encounter; B35.1 Tinea unguium; I63.89 Other cerebral infarction | CPT/HCPCS: 80053; 80061; 83036 ==

== ENCOUNTER → 2024-10-29 14:11 | Outpatient (BNVA) | payer MEDICAID, SELFPAY | PROVIDERS: PCP Family Medicine; Visit Provider Internal Medicine | DX: E11.65 Type 2 diabetes mellitus with hyperglycemia (principal); N18.9 Chronic kidney disease, unspecified; Z79.4 Long term (current) use of insulin; E16.0 Drug-induced hypoglycemia without coma; T38.3X5A Adverse effect of insulin and oral hypoglycemic [antidiabetic] drugs, initial encounter; B35.1 Tinea unguium; I63.89 Other cerebral infarction | CPT/HCPCS: 82043 ==

== ENCOUNTER → 2024-11-10 10:33 | Outpatient (BNVA) | payer MEDICAID, SELFPAY | PROVIDERS: PCP Family Medicine; Visit Provider Internal Medicine | DX: E08.43 Diabetes mellitus due to underlying condition with diabetic autonomic (poly)neuropathy (principal); N18.9 Chronic kidney disease, unspecified; I63.89 Other cerebral infarction; Z79.4 Long term (current) use of insulin; E16.0 Drug-induced hypoglycemia without coma; T38.3X5A Adverse effect of insulin and oral hypoglycemic [antidiabetic] drugs, initial encounter; B35.1 Tinea unguium; X58.XXXA Exposure to other specified factors, initial encounter | CPT/HCPCS: 99214 ==

== ENCOUNTER → 2024-12-15 11:35 | Outpatient (BNVA) | payer MEDICAID, SELFPAY | PROVIDERS: PCP Family Medicine; Visit Provider Nurse Practitioner | DX: I95.9 Hypotension, unspecified (principal) | CPT/HCPCS: 80053; 85025 ==

== ENCOUNTER → 2025-01-28 15:10 | Outpatient (BNVA) | payer MEDICAID, SELFPAY | PROVIDERS: PCP Family Medicine; Visit Provider Family Medicine | DX: E13.9 Other specified diabetes mellitus without complications (principal); Z68.1 Body mass index [BMI] 19.9 or less, adult | CPT/HCPCS: 80053; 80061; 82043; 83036; 84443 ==

== ENCOUNTER → 2025-02-01 15:36 | Outpatient (BNVA) | payer MEDICAID, SELFPAY | PROVIDERS: PCP Family Medicine; Referring Provider Internal Medicine; Visit Provider Internal Medicine | DX: E13.9 Other specified diabetes mellitus without complications (principal) | CPT/HCPCS: 82043 ==